=== PATIENT | male | born 1990 ===

== ENCOUNTER 2017-02-10 08:13 | Observation (INO) | payer MEDICAID ==
[2017-02-10] MEDS ORDERED: Midazolam 2 MG/2 ML VIAL ONE (08:19)
--- NOTE | 2017-02-10 08:34 | ED PDOC ---
HPI: Seizure Time Seen by Provider: 02/10/17 08:21 Chief Complaint (Nursing): Seizure Chief Complaint (Provider): Seizure History Per: EMS, Family History/Exam Limitations: clinical condition Recent Seizure Activity Began: Just Before Arrival Number Of Seizures: One Length Of Seizures (Duration): Minutes Quality Of Seizure: Generalized Precipitating Factor(s): None Associated Symptoms: Incontinence Of Urine Post-ictal Period: Yes Severity: Moderate Additional Complaint(s): Patient is a 26 year old male who presents to ED via EMS for seizure like activity this morning. As per EMS, upon their arrival patient was post-icle and transported to ED. As per mother, patient had a seizure this morning at 0730 while in bed, lasting 5 minutes. Notes a seizure in 2016 while in the hospital. EEG performed at that time, normal and no seizure medication started. Mother denies any known drug use other than Marijuana or alcohol consumption. Upon arrival to ED patient alert and oriented answering questions. Past Medical History Reviewed: Historical Data, Nursing Documentation, Vital Signs Vital Signs: Last Vital Signs Temp 98.1 F 02/10/17 08:20 Pulse 100 H 02/10/17 14:45 Resp 18 02/10/17 12:10 BP 138/76 02/10/17 12:10 Pulse Ox 98 02/10/17 14:45 - Medical History PMH: Mitral Valve Prolapse Denies: Chronic Kidney Disease - Surgical History Surgical History: No Surg Hx - Family History Family History: States: Unknown Family Hx - Living Arrangements Living Arrangements: With Family - Social History Current smoker - smoking cessation education provided: No Alcohol: None Drugs: Cannabis - Home Medications Home Medications: Ambulatory Orders Medication Instructions Recorded No Known Home Med 02/10/17 - Allergies Allergies/Adverse Reactions: Allergies Allergy/AdvReac Type Severity Reaction Status Date / Time No Known Allergies Allergy Verified 02/10/17 08:15 Review of Systems Review Of Systems: ROS cannot be obtained secondary to pt's inabilty to answer questions. Physical Exam - Reviewed Nursing Documentation Reviewed: Yes Vital Signs Reviewed: Yes - Physical Exam Appears: Positive for: In Acute Distress (Post-icle, somnulent) Head Exam: Positive for: ATRAUMATIC, NORMAL INSPECTION Skin: Positive for: Normal Color, Warm Eye Exam: Positive for: Normal appearance, EOMI, PERRL Cardiovascular/Chest: Positive for: Regular Rate, Rhythm, Tachycardia Respiratory: Positive for: Normal Breath Sounds. Negative for: Wheezing, Respiratory Distress Extremity: Positive for: Normal ROM. Negative for: Pedal Edema, Deformity Neurologic/Psych: Positive for: Other (Post-ictal). Negative for: Motor/ Sensory Deficits - Laboratory Results Result Diagrams: 02/10/17 08:45 02/10/17 08:45 - ECG ECG: Positive for: Interpreted By Me ECG Rhythm: Positive for: Sinus Tachycardia, 1st Degree Heart Block. Negative for: ST/T Changes Interpretation Of Abn EKG: (+) LVH with QRS widening Rate: 100 O2 Sat by Pulse Oximetry: 98 (NRB) Pulse Ox Interpretation: Normal Medical Decision Making Medical Decision Making: Time: 819 Initial impression: Seizure, recurrent with no trauma Initial plan: Upon arrival to ED patient experienced another seizure lasting 1-2 minutes. Placed on O2 via NRB, Versed IV ordered with resolution of seizure activity. Patient Post-ictle for approximately 10 minutes, now resolved. Previous charts reviewed: Evaluated in ED on 06/17/16 for right arm numbness and SOB. Patient during the ED visit had a tonic clonic seizure resolved with Ativan. As per mom, no seizure since this occurrence. -- EKG -- Alcohol serum -- BMP -- UDS -- Magnesium -- CBC -- Versed, Keppra 1400 Pt is alert awake and back to baseline. Pt is stable. No seizures. [address] Manuel. Recommends observation with MRI and EEG. Scribe Attestation: Documented by Mirtha Bazan acting as a scribe for Jordon Spencer MD MD Scribe Attestation: All medical record entries made by the Scribe were at my direction and personally dictated by me. I have reviewed the chart and agree that the record accurately reflects my personal performance of the history, physical exam, medical decision making, and the department course for this patient. I have also personally directed, reviewed, and agree with the discharge instructions and disposition. Disposition - Clinical Impression Clinical Impression: Recurrent seizures, Cannabinoid hyperemesis syndrome - Patient ED Disposition Is Patient to be Admitted: Yes Discussed With : Reyes Machuca Doctor Will See Patient In The: ED Counseled Patient/Family Regarding: Studies Performed, Diagnosis - Disposition Disposition Time: 14:20 Condition: FAIR - Pt Status Changed To: Hospital Disposition Of: Observation - POA Present On Arrival: None
[2017-02-10] MEDS ORDERED: levETIRAcetam 500 MG in Sodium Chloride 0.9% 100 ML IV STA (08:39)
[2017-02-10] MEDS ORDERED: Midazolam 2 MG/2 ML VIAL IV ONE (08:40)
[2017-02-10] MEDS ORDERED: levETIRAcetam 1,000 MG in Sodium Chloride 0.9% 100 ML IV STA (08:41)
[2017-02-10 09:01] LABS: BASO % 0.5 % (0.0-2.0); EOS # 0.2 K/uL (0.0-0.7); HEMATOCRIT 40.7 % (35.0-51.0); LYMPH # 1.7 K/uL (1.0-4.3); MEAN CELL VOLUME 87.9 fl (80.0-94.0); MEAN CORPUSCULAR HEMOGLOBIN 28.8 pg (27.0-31.0); MEAN CORPUSCULAR HGB CONC 32.8 g/dL (33.0-37.0); MEAN PLATELET VOLUME 8.9 fl (7.2-11.7); MONO # 0.5 K/uL (0.0-0.8); MONO % 6.1 % (0.0-10.0); NEUT # 5.3 K/uL (1.8-7.0); NEUT % 69.4 % (50.0-75.0); NRBC % 0.1 % (0.0-0.0); RED CELL DISTRIBUTION WIDTH 13.4 % (11.5-14.5); WHITE BLOOD COUNT 7.6 K/uL (4.8-10.8)
[2017-02-10 09:22] LABS: ALCOHOL SERUM < 10 mg/dl (0-10); BLOOD UREA NITROGEN 19 mg/dl (9-20); CALCIUM 9.9 mg/dL (8.4-10.2); CARBON DIOXIDE 22 mmol/L (22-30); CHLORIDE 102 mmol/L (98-107); GFR AFRICAN-AMERICAN > 60; GLUCOSE,RANDOM 127 mg/dL (75-110); POTASSIUM 4.5 MMOL/L (3.6-5.0); SODIUM 142 mmol/l (132-148)
[2017-02-10] MEDS ORDERED: Sodium Chloride 0.9% 1,000 ML IV STA (09:50)
--- NOTE | 2017-02-10 12:52 | CARD ---
APPROVED REPORT EKG Measurement Heart [id number] <Conclusion> Sinus rhythm with 1st degree AV block Left ventricular hypertrophy with QRS widening Abnormal ECG
[2017-02-10] MEDS ORDERED: Gadodiamide 287 MG/ML VIAL (15ML) IV ONE (15:45)
--- NOTE | 2017-02-10 15:46 | CP.PCM.HP ---
History of Present Illness - History of Present Illness History of Present Illness: Pt is a 26 year old male with no significant medical problems presented to ED via ambulance for seizure like activity; per EMS, upon their arrival patient was post-icle and transported to ED. His mother reports patient had a seizure this morning at 0730 while in bed, lasting 5 minutes. Notes a seizure in 2016 while in the hospital. EEG performed at that time, normal and no seizure medication started. Mother denies any known drug use other than Marijuana or alcohol consumption. Upon arrival to ED patient alert and oriented answering questions. Pt was seen and evaluated while getting ready for EEG, pt got nauseous; ED physician notified, zofran ordered. besides nausea and feeling tired, pt does not have any other complains Present on Admission - Present on Admission Any Indicators Present on Admission: No Review of Systems - Review of Systems All systems: reviewed and no additional remarkable complaints except Review of Systems: per HPI Past Patient History - Infectious Disease Hx of Infectious Diseases: None - Tetanus Immunizations Tetanus Immunization: Unknown - Past Medical History & Family History Past Medical History?: Yes - Past Social History Alcohol: None Drugs: Cannabis - CARDIAC Hx Mitral Valve Prolapse: Yes - PULMONARY Hx Respiratory Disorders: No - NEUROLOGICAL HX Cerebrovascular Accident: Yes ( ? " Stroke" - 6 most after VSD repair - had leg weakness , aphasia) Hx Seizures: Yes - HEENT Hx HEENT Problems: No - RENAL Hx Chronic Kidney Disease: No - ENDOCRINE/METABOLIC Hx Endocrine Disorders: No - HEMATOLOGICAL/ONCOLOGICAL Hx Blood Disorders: No - INTEGUMENTARY Hx Dermatological Problems: No - MUSCULOSKELETAL/RHEUMATOLOGICAL Hx Falls: No - GASTROINTESTINAL Hx Gastrointestinal Disorders: No - GENITOURINARY/GYNECOLOGICAL Hx Genitourinary Disorders: No - PSYCHIATRIC Hx Psychophysiologic Disorder: No Hx Substance Use: Yes - SURGICAL HISTORY Hx Surgeries: Yes Hx Herniorrhaphy: Yes Other/Comment: VSD repair. Hernia sx. - ANESTHESIA Hx Anesthesia: Yes Hx Anesthesia Reactions: No Hx Malignant Hyperthermia: No Meds Allergies/Adverse Reactions: Allergies Allergy/AdvReac Type Severity Reaction Status Date / Time No Known Allergies Allergy Verified 02/10/17 08:15 Physical Exam - Head Exam Head Exam: ATRAUMATIC, NORMAL INSPECTION, NORMOCEPHALIC - Eye Exam Eye Exam: Normal appearance, PERRL Pupil Exam: NORMAL ACCOMODATION - ENT Exam ENT Exam: Mucous Membranes Moist - Neck Exam Neck exam: Positive for: Full Rom. Negative for: Tenderness, Thyromegaly - Respiratory Exam Respiratory Exam: Clear to Auscultation Bilateral, NORMAL BREATHING PATTERN. absent: Rhonchi, Wheezes - Cardiovascular Exam Cardiovascular Exam: REGULAR RHYTHM, +S1, +S2 - GI/Abdominal Exam GI & Abdominal Exam: Normal Bowel Sounds, Soft. absent: Tenderness - Extremities Exam Extremities exam: Positive for: normal inspection. Negative for: calf tenderness, joint swelling, pedal edema - Back Exam Back exam: NORMAL INSPECTION. absent: CVA tenderness (L), CVA tenderness (R), paraspinal tenderness - Neurological Exam Neurological exam: Alert, CN II-XII Intact, Oriented x3, Reflexes Normal Results - Vital Signs Recent Vital Signs: Last Vital Signs Temp 98.1 F 02/10/17 08:20 Pulse 100 H 02/10/17 14:46 Resp 18 02/10/17 12:10 BP 138/76 02/10/17 12:10 Pulse Ox 98 02/10/17 14:46 - Labs Result Diagrams: 02/10/17 08:45 02/10/17 08:45 Assessment & Plan - Assessment and Plan (Free Text) Assessment: Pt is a26 y/o male with no significant medical problems except a one time seizure episode for which he was not placed on any medication, being admitted for seizure activity earlier today. Plan: Seizure activity neurology consulted- recommends MRI of brain and EEG, also to start on keppra f/u MRI F/u EEG zofran for nausea diet- regular dvt prophylaxis- SCds ( low risk)
--- NOTE | 2017-02-10 17:19 | MRI ---
PROCEDURE: MRI BRAIN WITH AND WITHOUT CONTRAST HISTORY: Seizures COMPARISON: Noncontrast head CT from 06/17/2016 TECHNIQUE: Multiplanar, multisequence MR images of the brain were obtained with and without intravenous contrast enhancement. Thin section coronal T2 and FLAIR sequences were obtained through the temporal lobes. 18 cc of Omniscan was injected intravenously. FINDINGS: HEMORRHAGE: None DWI: No evidence of an acute or early subacute infarction. BRAIN PARENCHYMA: Orr-white matter differentiation is preserved. There is no mass, mass effect or abnormal extra-axial fluid collection. There is age focal T1 hypointense, FLAIR hypointense and T2 hyperintense nonenhancing focus in the right paramedian thalamus which may represent a prominent perivascular space or gliosis. . The midline sagittal structures are normal. The hippocampi are symmetric and there is normal architecture in intrinsic signal intensity. There there is no evidence of mesial temporal sclerosis. ENHANCEMENT: No abnormal intracranial enhancement. VENTRICLES: The ventricles are normal in size, shape and configuration. CRANIUM: There is normal bone marrow signal pattern. ORBITS: Grossly unremarkable. PARANASAL SINUSES/MASTOIDS: Clear VASCULAR SYSTEM: Skull base flow voids intact. OTHER FINDINGS: None . IMPRESSION: No acute intracranial abnormality. No evidence of mesial temporal sclerosis, mass, hydrocephalus or any other significant abnormality.
[2017-02-11] MEDS ORDERED: Lidocaine 1% Inj (20ml) ONE (11:39)
--- NOTE | 2017-02-11 15:19 | CP.PCM.DIS ---
Provider - Provider Date of Admission: 02/10/17 14:24 Attending physician: Reyes Machuca MD Time Spent in preparation of Discharge (in minutes): 20 Diagnosis - Discharge Diagnosis (1) Recurrent seizures Status: Acute Hospital Course - Lab Results Lab Results: Most Recent Lab Values WBC 7.6 K/uL (4.8-10.8) 02/10/17 08:45 RBC 4.63 Mil/uL (4.40-5.90) 02/10/17 08:45 Hgb 13.4 g/dL (12.0-18.0) 02/10/17 08:45 Hct 40.7 % (35.0-51.0) 02/10/17 08:45 MCV 87.9 fl (80.0-94.0) 02/10/17 08:45 MCH 28.8 pg (27.0-31.0) 02/10/17 08:45 MCHC 32.8 g/dL (33.0-37.0) L 02/10/17 08:45 RDW 13.4 % (11.5-14.5) 02/10/17 08:45 Plt Count 182 K/uL (130-400) 02/10/17 08:45 MPV 8.9 fl (7.2-11.7) 02/10/17 08:45 Neut % (Auto) 69.4 % (50.0-75.0) 02/10/17 08:45 Lymph % (Auto) 22.0 % (20.0-40.0) 02/10/17 08:45 [place] % (Auto) 6.1 % (0.0-10.0) 02/10/17 08:45 Eos % (Auto) 2.0 % (0.0-4.0) 02/10/17 08:45 Baso % (Auto) 0.5 % (0.0-2.0) 02/10/17 08:45 Neut # 5.3 K/uL (1.8-7.0) 02/10/17 08:45 Lymph # 1.7 K/uL (1.0-4.3) 02/10/17 08:45 [place] # 0.5 K/uL (0.0-0.8) 02/10/17 08:45 Eos # 0.2 K/uL (0.0-0.7) 02/10/17 08:45 Baso # 0.0 K/uL (0.0-0.2) 02/10/17 08:45 Sodium 142 mmol/l (132-148) 02/10/17 08:45 Potassium 4.5 MMOL/L (3.6-5.0) 02/10/17 08:45 Chloride 102 mmol/L (98-107) 02/10/17 08:45 Carbon Dioxide 22 mmol/L (22-30) 02/10/17 08:45 Anion Gap 23 (10-20) H 02/10/17 08:45 BUN 19 mg/dl (9-20) 02/10/17 08:45 Creatinine 1.0 mg/dL (0.8-1.5) 02/10/17 08:45 Est GFR ( Amer) > 60 02/10/17 08:45 Est GFR (Non-Af Amer) > 60 02/10/17 08:45 POC Glucose (mg/dL) 152 mg/dL (65-110) H 02/10/17 08:36 Random Glucose 127 mg/dL (75-110) H 02/10/17 08:45 Calcium 9.9 mg/dL (8.4-10.2) 02/10/17 08:45 Magnesium 2.0 MG/DL (1.6-2.3) 02/10/17 08:45 Urine Opiates Screen Negative (NEGATIVE) 02/10/17 11:39 Urine Methadone Screen Negative (NEGATIVE) 02/10/17 11:39 Ur Barbiturates Screen Negative (NEGATIVE) 02/10/17 11:39 Ur Phencyclidine Scrn Negative (NEGATIVE) 02/10/17 11:39 Ur Amphetamines Screen Negative (NEGATIVE) 02/10/17 11:39 U Benzodiazepines Scrn Positive (NEGATIVE) H 02/10/17 11:39 U Oth Cocaine Metabols Negative (NEGATIVE) 02/10/17 11:39 U Cannabinoids Screen Positive (NEGATIVE) H 02/10/17 11:39 Alcohol, Quantitative < 10 mg/dl (0-10) 02/10/17 08:45 - Hospital Course Hospital Course: Pt wad admitted for recurrent seizure had an EEG and MRI done and cleared by neurology to go home on keppra with outpatient neurology follow up Discharge Exam - Head Exam Head Exam: ATRAUMATIC, NORMAL INSPECTION, NORMOCEPHALIC - Eye Exam Eye Exam: EOMI, Normal appearance, PERRL Pupil Exam: NORMAL ACCOMODATION - ENT Exam ENT Exam: Mucous Membranes Moist - Respiratory Exam Respiratory Exam: NORMAL BREATHING PATTERN - Cardiovascular Exam Cardiovascular Exam: REGULAR RHYTHM, +S1, +S2 - GI/Abdominal Exam GI & Abdominal Exam: Normal Bowel Sounds, Soft - Extremities Exam Extremities exam: normal inspection - Neurological Exam Neurological exam: Alert, CN II-XII Intact, Normal Gait, Oriented x3, Reflexes Normal - Psychiatric Exam Psychiatric exam: Normal Mood Discharge Plan - Discharge Medications Prescriptions: levETIRAcetam [Keppra] 500 mg PO BID@0900,2100 #60 tab - Follow Up Plan Condition: FAIR Disposition: HOME/ ROUTINE Instructions: Recurrent Seizures in Adults (GEN) Additional Instructions: please follow up with Dr. Bernal (neurologist) take medication as prescribed d/c ilicit drug use Referrals: Naga Bernal MD [Staff Provider] -
[2017-02-11 16:07] VITALS: BP 120/68; PULSE 80; RESP 20; TEMP 98.8; O2SAT 98
--- NOTE | 2017-02-11 20:44 | CP.PCM.CON ---
History of Present Illness - History of Present Illness History of Present Illness: Tony Camacho is a 26-year-old man with a previous history of a witnessed tonic -clonic seizure in the past, who presented again yesterday with an episode that was witnessed by his mother at home and then another seizure in the hospital. He was given 1 gram of Keppra and has been seizure free since. He admits to smoking marijuana daily, although recently he has cut down. Review of Systems - Review of Systems All systems: reviewed and no additional remarkable complaints except - Constitutional Constitutional: As Per HPI - EENT Eyes: As Per HPI - Cardiovascular Cardiovascular: As Per HPI - Neurological Neurological: As Per HPI - Psychiatric Psychiatric: As Per HPI Past Patient History - Infectious Disease Hx of Infectious Diseases: None - Tetanus Immunizations Tetanus Immunization: Unknown - Past Medical History & Family History Past Medical History?: Yes - Past Social History Smoking Status: Former Smoker - CARDIAC Hx Cardiac Disorders: Yes (VSD repair) - PULMONARY Hx Respiratory Disorders: No - NEUROLOGICAL Hx Neurological Disorder: Yes (seizures) - HEENT Hx HEENT Problems: No - RENAL Hx Chronic Kidney Disease: No - ENDOCRINE/METABOLIC Hx Endocrine Disorders: No - HEMATOLOGICAL/ONCOLOGICAL Hx Blood Disorders: No Hx AIDS: No Hx Human Immunodeficiency Virus (HIV): No - INTEGUMENTARY Hx Dermatological Problems: No - MUSCULOSKELETAL/RHEUMATOLOGICAL Hx Musculoskeletal Disorders: No Hx Falls: No - GASTROINTESTINAL Hx Gastrointestinal Disorders: No - GENITOURINARY/GYNECOLOGICAL Hx Genitourinary Disorders: No - PSYCHIATRIC Hx Psychophysiologic Disorder: No Hx Substance Use: No - SURGICAL HISTORY Hx Surgeries: Yes Hx Herniorrhaphy: Yes Other/Comment: VSD repair. Hernia sx. - ANESTHESIA Hx Anesthesia: Yes Hx Anesthesia Reactions: No Hx Malignant Hyperthermia: No Meds Home Medications: Home Medication List Medication Instructions Recorded Confirmed Type levETIRAcetam [Keppra] 500 mg PO BID@0900,2100 #60 tab 02/11/17 Rx Allergies/Adverse Reactions: Allergies Allergy/AdvReac Type Severity Reaction Status Date / Time No Known Allergies Allergy Verified 02/10/17 08:15 Physical Exam - Constitutional Appears: Well - Head Exam Head Exam: ATRAUMATIC, NORMAL INSPECTION, NORMOCEPHALIC - Eye Exam Eye Exam: EOMI, Normal appearance, PERRL Pupil Exam: NORMAL ACCOMODATION, PERRL - Neck Exam Neck exam: Positive for: Normal Inspection - Cardiovascular Exam Cardiovascular Exam: REGULAR RHYTHM - Neurological Exam Neurological exam: Alert, CN II-XII Intact, Normal Gait, Oriented x3, Reflexes Normal - Psychiatric Exam Psychiatric exam: Normal Affect, Normal Mood Results - Vital Signs Recent Vital Signs: Last Vital Signs Temp 98.8 F 02/11/17 16:06 Pulse 80 02/11/17 16:06 Resp 20 02/11/17 16:06 BP 120/68 02/11/17 16:06 Pulse Ox 98 02/11/17 16:06 - Labs Result Diagrams: 02/10/17 08:45 02/10/17 08:45 - Imaging and Cardiology MRI - head Status: Image reviewed by me, Report reviewed by me (Normal MRI of the brain.) Assessment & Plan (1) Seizure Status: Acute Priority: High Comment: Will start Keppra 500 mg BID, follow EEG results, and refer for outpatient neurology follow-up.
--- NOTE | 2017-02-24 14:27 | EEG ---
DATE: 02/10/2017 The record is obtained for a history of possible seizures. The record was obtained while patient was awake. The record was symmetrically equal on both sides with velocity of 8-9 cycles per second. Th e waves were fairly formed, fairly organized with a posterior distribution, moderate in amplitude, re active to eye opening by attenuation. There were abnormal discharges that were seen in the left temp oral area consisting of spikes that were seen very sporadically and rarely, were seen once or twice w ith slow waves, and the record did not show any changes with photic stimulation. The hyperventilatio n was omitted. There were no periods of drowsiness. There were no periods of sleep. There were eye movement artifacts, electrode artifacts, and muscle movement artifacts. SUMMARY: This is an abnormal record, significant for left temporal sporadic spikes and slow waves th at were seen occasionally. This might be consistent with a seizure disorder. A repeat of the study is recommended if warranted. Adriana Canada MD cc: [id number] TT: 02/24/2017 08:41:29 Confirmation # [id number] Dictation # [id number]
== END 2017-02-11 16:21 | disposition home or self-care (01) ==
LOC: H.ER 08:13 → H.ERHOLD 14:24 → H.TEL 17:55
PROVIDERS: ADMIT Family Medicine; ATTEND Family Medicine
DX: G40.909 Epilepsy, unspecified, not intractable, without status epilepticus (principal)

== ENCOUNTER 2017-03-14 06:36 | Emergency (ER) | payer MEDICAID ==
[2017-03-14 06:40] VITALS: TEMP 97.6
--- NOTE | 2017-03-14 07:14 | ED PDOC ---
HPI: Seizure Time Seen by Provider: 03/14/17 07:00 Chief Complaint (Nursing): Altered Mental Status History Per: Family (Presumptive seizure, mother came into room after episode, pt found on floor. No recollection of evevntr. Bit lower lip. H/o seizure disorder. noncompliant with meds due to feeling dysphoric when on meds.) Recent Seizure Activity Began: Unknown Number Of Seizures: One Length Of Seizures (Duration): Unknown Precipitating Factor(s): Missed Dose Of Anti-seizure Medication Associated Symptoms: Bit Tongue Post-ictal Period: Yes Past Medical History Vital Signs: Last Vital Signs Temp 97.6 F 03/14/17 06:38 Pulse 69 03/14/17 10:05 Resp 20 03/14/17 10:05 BP 121/73 03/14/17 10:05 Pulse Ox 100 03/14/17 10:05 - Medical History PMH: Mitral Valve Prolapse, Seizures Denies: HIV, Chronic Kidney Disease - Family History Family History: States: Unknown Family Hx - Home Medications Home Medications: Ambulatory Orders Medication Instructions Recorded levETIRAcetam [Keppra] 500 mg PO BID@0900,2100 #60 tab 02/11/17 - Allergies Allergies/Adverse Reactions: Allergies Allergy/AdvReac Type Severity Reaction Status Date / Time No Known Allergies Allergy Verified 02/10/17 08:15 Review of Systems ROS Statement: Except As Marked, All Systems Reviewed And Found Negative Neurological: Positive for: Seizures Physical Exam - Reviewed Nursing Documentation Reviewed: Yes Vital Signs Reviewed: Yes - Physical Exam Appears: Positive for: Non-toxic, No Acute Distress Head Exam: Positive for: ATRAUMATIC, NORMAL INSPECTION, NORMOCEPHALIC Skin: Positive for: Normal Color, Warm, DRY Eye Exam: Positive for: EOMI, Normal appearance, PERRL ENT: Positive for: Other (Bite jose left lateral tongue, abrasion lower lip). Negative for: Normal ENT Inspection Neck: Positive for: Normal, Painless ROM Cardiovascular/Chest: Positive for: Regular Rate, Rhythm Respiratory: Positive for: CNT, Normal Breath Sounds Gastrointestinal/Abdominal: Positive for: Normal Exam, Bowel Sounds, Soft Back: Positive for: Normal Inspection Extremity: Positive for: Normal ROM Neurologic/Psych: Positive for: Alert, Oriented. Negative for: Motor/Sensory Deficits - Laboratory Results Result Diagrams: 03/14/17 06:50 03/14/17 06:50 - ECG O2 Sat by Pulse Oximetry: 99 Disposition - Clinical Impression Clinical Impression: Seizure - Patient ED Disposition Is Patient to be Admitted: No Counseled Patient/Family Regarding: Studies Performed, Diagnosis, Need For Followup - Disposition Disposition: Routine/Home Disposition Time: 11:41 Condition: FAIR Instructions: Recurrent Seizures in Adults (ED)
[2017-03-14] MEDS ORDERED: carBAMazepine Chew Tab 100 MG Chew Tab PO ONE (07:30)
[2017-03-14 07:34] LABS: BASO % 0.6 % (0.0-2.0); EOS # 0.3 K/uL (0.0-0.7); EOS % 4.4 % (0.0-4.0); HEMATOCRIT 40.7 % (35.0-51.0); LYMPH # 1.8 K/uL (1.0-4.3); LYMPH % 30.2 % (20.0-40.0); MEAN CELL VOLUME 89.5 fl (80.0-94.0); MEAN CORPUSCULAR HEMOGLOBIN 28.6 pg (27.0-31.0); MEAN PLATELET VOLUME 8.9 fl (7.2-11.7); MONO # 0.4 K/uL (0.0-0.8); MONO % 6.6 % (0.0-10.0); NEUT # 3.5 K/uL (1.8-7.0); NEUT % 58.2 % (50.0-75.0); RED CELL DISTRIBUTION WIDTH 13.4 % (11.5-14.5); WHITE BLOOD COUNT 6.1 K/uL (4.8-10.8)
[2017-03-14 07:49] LABS: ALB/GLOB RATIO 1.6 (1.0-2.1); ALKALINE PHOSPHATASE 60 U/L (38-126); ALT/SGPT 33 U/L (21-72); AST/SGOT 34 U/L (17-59); BILIRUBIN,TOTAL 0.5 mg/dl (0.2-1.3); BLOOD UREA NITROGEN 17 mg/dl (9-20); CALCIUM 9.8 mg/dL (8.4-10.2); CARBON DIOXIDE 21 mmol/L (22-30); CHLORIDE 104 mmol/L (98-107); GFR AFRICAN-AMERICAN > 60; GLUCOSE,RANDOM 122 mg/dL (75-110); POTASSIUM 4.3 MMOL/L (3.6-5.0); SODIUM 140 mmol/l (132-148); TOTAL PROTEIN 7.6 G/DL (6.3-8.2)
[2017-03-14] MEDS ORDERED: carBAMazepine Chew Tab 100 MG Chew Tab ONE ×3 (08:08→14:28)
[2017-03-14] MEDS ORDERED: carBAMazepine Chew Tab 100 MG Chew Tab PO STA ×2 (08:09→09:05)
[2017-03-14 12:37] VITALS: BP 122/77; PULSE 56; RESP 18; O2SAT 98
== END 2017-03-14 11:50 | disposition home or self-care (01) ==
LOC: H.ER 06:36
DX: G40.909 Epilepsy, unspecified, not intractable, without status epilepticus (principal); Z91.14 Patient's other noncompliance with medication regimen; I34.1 Nonrheumatic mitral (valve) prolapse

== ENCOUNTER 2017-03-14 13:56 | Observation (INO) | payer MEDICAID ==
[2017-03-14] MEDS ORDERED: Sodium Chloride 0.9% 1,000 ML IV STA (14:18)
[2017-03-14] MEDS ORDERED: carBAMazepine Chew Tab 100 MG Chew Tab PO STA (14:31)
--- NOTE | 2017-03-14 14:31 | ED PDOC ---
HPI: Seizure Time Seen by Provider: 03/14/17 14:02 Chief Complaint (Nursing): Seizure Chief Complaint (Provider): Seizure History Per: Patient History/Exam Limitations: no limitations Recent Seizure Activity Began: Just Before Arrival Number Of Seizures: Multiple Quality Of Seizure: Generalized Additional Complaint(s): 14:02 Tony Camacho, 26 year old male presents to the ED on 03/14/17, for recurrent seizures. As per prior notes, the patient has been admitted to the ED earlier today for seizure disorder. During his first visit, the patient was seizure free for 5 hours in ED and was then discharged home with advice to follow up with his neurologist tomorrow. The patient is non compliant with medication and experienced another seizure after being discharged, witnessed by his family. PMD: Not provided Past Medical History Reviewed: Historical Data, Nursing Documentation, Vital Signs Vital Signs: Last Vital Signs Temp 98.4 F 03/15/17 13:00 Pulse 63 03/15/17 13:00 Resp 20 03/15/17 13:00 BP 118/68 03/15/17 13:00 Pulse Ox 97 03/15/17 13:00 - Medical History PMH: Mitral Valve Prolapse, Seizures Denies: HIV, Chronic Kidney Disease - Family History Family History: States: Unknown Family Hx - Home Medications Home Medications: Ambulatory Orders Medication Instructions Recorded carBAMazepine [TEGretol] 200 mg PO TID #90 tab 03/15/17 - Allergies Allergies/Adverse Reactions: Allergies Allergy/AdvReac Type Severity Reaction Status Date / Time No Known Allergies Allergy Verified 03/14/17 13:58 Review of Systems ROS Statement: Except As Marked, All Systems Reviewed And Found Negative Neurological: Positive for: Seizures Physical Exam - Reviewed Nursing Documentation Reviewed: Yes Vital Signs Reviewed: Yes - Physical Exam Appears: Positive for: Non-toxic, No Acute Distress Head Exam: Positive for: ATRAUMATIC, NORMOCEPHALIC Skin: Positive for: Normal Color, Warm, Dry Eye Exam: Positive for: Normal appearance, EOMI, PERRL ENT: Positive for: Normal ENT Inspection Neck: Positive for: Normal Cardiovascular/Chest: Positive for: Regular Rate, Rhythm, Chest Non Tender Respiratory: Positive for: Normal Breath Sounds. Negative for: Respiratory Distress Gastrointestinal/Abdominal: Positive for: Normal Exam. Negative for: Tenderness Extremity: Positive for: Normal ROM (moving all extremities equally). Negative for: Pedal Edema Neurologic/Psych: Positive for: Other (sleeping; generalized tonic clonic seizures with post-ictal period) - Laboratory Results Result Diagrams: 03/15/17 05:20 03/15/17 05:20 - ECG O2 Sat by Pulse Oximetry: 100 (RA) Pulse Ox Interpretation: Normal Medical Decision Making Medical Decision Makin:02 Initial Impression: Generalized tonic clonic seizures with post-ictal period Initial Plan: * CT Head w/o Contrast * carBAMazepine chew Tab 100 mg PO STAT * Sodium Chloride 0.9% IV 100 mls/hr * Ondansetron 4mg IVP * Physician Consult Routine 14:18 Admit to Hospital Routine 15:47 Patient actively seizing in ED at this time Plan * Ativan ordered, IV Scribe Attestation: Documented by Leigh Bonilla, training under Mirtha Bazan, acting as a scribe for Wilbur Hedrick MD. Provider Scribe Attestation: All medical record entries made by the Scribe were at my direction and personally dictated by me. I have reviewed the chart and agree that the record accurately reflects my personal performance of the history, physical exam, medical decision making, and the department course for this patient. I have also personally directed, reviewed, and agree with the discharge instructions and disposition. Disposition - Clinical Impression Clinical Impression: Frequent seizures - Patient ED Disposition Is Patient to be Admitted: Yes - Disposition Disposition Time: 13:00 Condition: GUARDED - Pt Status Changed To: Hospital Disposition Of: Inpatient - Admit Certification Admit to Inpatient:: After my assessment, the patient will require hospitalization for at least two midnights. This is because of the severity of symptoms shown, intensity of services needed, and/or the medical risk in this patient being treated as an outpatient. - POA Present On Arrival: None
--- NOTE | 2017-03-14 15:39 | CT ---
PROCEDURE: CT HEAD WITHOUT CONTRAST. HISTORY: r/o bleed COMPARISON: Comparison is made to the previous study dated 06/17/2016 TECHNIQUE: Axial computed tomography images were obtained through the head/brain without intravenous contrast. Radiation dose: Total exam DLP = 855.47 mGy-cm. This CT exam was performed using one or more of the following dose reduction techniques: Automated exposure control, adjustment of the mA and/or kV according to patient size, and/or use of iterative reconstruction technique. FINDINGS: HEMORRHAGE: No intracranial hemorrhage. BRAIN: No mass effect or edema. No atrophy or chronic microvascular ischemic changes. VENTRICLES: Unremarkable. No hydrocephalus. CALVARIUM: Unremarkable. PARANASAL SINUSES: Unremarkable as visualized. No significant inflammatory changes. MASTOID AIR CELLS: Unremarkable as visualized. No inflammatory changes. OTHER FINDINGS: None. IMPRESSION: No evidence of acute intracranial hemorrhage or acute pathology in the brain. No significant interval change since the previous exam.
[2017-03-14] MEDS ORDERED: levETIRAcetam 1,000 MG in Sodium Chloride 0.9% 100 ML IVPB ONE (16:23)
--- NOTE | 2017-03-14 21:40 | CON ---
DATE: 03/14/2017 REASON FOR CONSULTATION: Seizure. HISTORY OF PRESENT ILLNESS: The patient is a 26-year-old male who was brought to the hospital after he had a seizure while he was asleep. The patient apparently has a history of seizures starting in 06/2016. At that time, he was not started on any medication. Subsequently, he had 2 seizures in [place] at which time he was started on Keppra. On Keppra he started having some behavioral side effects s o was switched to carbamazepine. However, patient was not taking carbamazepine regularly. He is sup posed to have an appointment with his neurologist tomorrow. The patient was discharged after being s een in the Emergency Room this morning; however, he was brought in because he had another seizure and while in the Emergency Room he had a third seizure. That is why the patient was admitted in the [facility]. The patient was loaded with IV Keppra. On review of the moment, the patient is sleepy, but i s easily arousable and follows all commands. REVIEW OF SYSTEMS: Positive for headache. Denies any chest pain, shortness of breath, abdominal petros n, constipation, diarrhea, dysuria, pyuria, cough, sputum production. PAST MEDICAL HISTORY: Includes mitral valve prolapse, seizures. MEDICATIONS: At home included carbamazepine 200 mg daily and 400 mg at bedtime; however, patient was apparently not taking the medications. ALLERGIES: No known drug allergies. SOCIAL HISTORY: The patient occasionally smokes marijuana. He denies the use of alcohol or illicit drugs. FAMILY HISTORY: Noncontributory to the case. PHYSICAL EXAMINATION: GENERAL: The patient is a young, pleasant male lying on the bed, in no acute distress. VITAL SIGNS: His blood pressure is 102/67, heart rate is 69 per minute, breathing at a rate of 16 pe r minute, temperature is 98.4 degrees Fahrenheit. HEENT: Normocephalic, atraumatic. NECK: Supple. There are no carotid bruits. LUNGS: Clear. CARDIOVASCULAR: S1, S2 audible. No murmurs. ABDOMEN: Soft, nontender, bowel sounds present. NEUROLOGIC EXAMINATION: MENTAL STATUS: The patient is awake, alert, oriented to time, place, person. Speech is fluent. Nam ing and repetition normal. Memory and cognition are intact. CRANIAL NERVES: Pupils are 4 mm bilaterally reactive to light. Visual romero are full. Extraocular movements are intact. There is no facial asymmetry. Palate is upgoing bilaterally and tongue is mi dline. MOTOR: Tone is normal. Power is 5/5 bilaterally in all extremities. Reflexes +2 and symmetrical. Plantars downgoing bilaterally. CEREBELLAR: [id number] shows no dysmetria. Gait is deferred at the moment. LABORATORY DATA: Reviewed, shows a WBC of 6.1, hemoglobin 13.0, hematocrit 40.7 and platelets of 158 . His sodium is 140, potassium is 4.3, chloride 104, carbon dioxide 21, BUN of 17, creatinine 1.1, a nd glucose of 122. His urine toxicology is positive for cannabinoids. His Tegretol level was less t raphael 0.3. IMPRESSION: Breakthrough seizure with a history of seizure disorder secondary to noncompliance. RECOMMENDATIONS: 1. The patient to be restarted on carbamazepine. He was given 300 mg of carbamazepine this morning; however, will give 300 extra tonight and start him on 200 mg 3 times a day as of tomorrow morning. 2. The patient's Keppra is to be discontinued as the patient apparently had behavioral side effects with Keppra when he was started on it last month. 3. The patient had a CT scan of the head done which is negative. As per mother, patient had MRI of the brain done and it was normal. 4. If patient remains stable and has no further seizures, then he may be discharged tomorrow with ou tpatient followup with his primary neurologist. Thank you for the opportunity to participate in the care of this patient. Antonieta Estevez MD cc: [id number] TT: 03/14/2017 21:39:52 Confirmation # [id number] Dictation # [id number]
[2017-03-15 06:39] LABS: BASO % 0.2 % (0.0-2.0); EOS # 0.1 K/uL (0.0-0.7); EOS % 0.4 % (0.0-4.0); HEMATOCRIT 35.3 % (35.0-51.0); LYMPH # 1.4 K/uL (1.0-4.3); MEAN CELL VOLUME 87.9 fl (80.0-94.0); MEAN CORPUSCULAR HEMOGLOBIN 28.6 pg (27.0-31.0); MEAN CORPUSCULAR HGB CONC 32.6 g/dL (33.0-37.0); MEAN PLATELET VOLUME 9.1 fl (7.2-11.7); MONO # 1.1 K/uL (0.0-0.8); MONO % 8.5 % (0.0-10.0); NEUT # 10.4 K/uL (1.8-7.0); NEUT % 79.9 % (50.0-75.0)
[2017-03-15 06:48] LABS: ALB/GLOB RATIO 1.5 (1.0-2.1); ALCOHOL SERUM < 10 mg/dl (0-10); ALKALINE PHOSPHATASE 59 U/L (38-126); ALT/SGPT 31 U/L (21-72); AST/SGOT 28 U/L (17-59); BILIRUBIN,TOTAL 0.8 mg/dl (0.2-1.3); BLOOD UREA NITROGEN 12 mg/dl (9-20); CALCIUM 9.4 mg/dL (8.4-10.2); CARBON DIOXIDE 26 mmol/L (22-30); CHLORIDE 105 mmol/L (98-107); GFR AFRICAN-AMERICAN > 60; GLUCOSE,RANDOM 77 mg/dL (75-110); POTASSIUM 4.1 MMOL/L (3.6-5.0); SODIUM 141 mmol/l (132-148); TOTAL PROTEIN 6.6 G/DL (6.3-8.2)
[2017-03-15 08:07] VITALS: RESP 20
[2017-03-15] MEDS ORDERED: carBAMazepine Chew Tab 100 MG Chew Tab PO SCH (09:00)
[2017-03-15] MEDS ORDERED: Enoxaparin 40 mg Syringe SC SCH (09:00)
[2017-03-15] MEDS ORDERED: Alum-Mag Hydrox-Simethicone Susp (30 mL) PO ONE (10:30)
[2017-03-15 12:32] VITALS: BP 118/68; PULSE 63
[2017-03-15 15:18] VITALS: TEMP 98.4
--- NOTE | 2017-03-15 22:39 | CP.PCM.HP ---
History of Present Illness - History of Present Illness History of Present Illness: A 26 yr old male with x of recent diagnosis of seizure ,supposed to f\u neurology, not complaint to meds as per mother who is at bed side he supposed to be on diff med too the patient has been admitted to the ED earlier today for seizure disorder. During his first visit, the patient was seizure free for 5 hours in ED and was then discharged home with advice to follow up with his neurologist tomorrow. The patient is non compliant with medication and experienced another seizure after being discharged, witnessed by his family. Present on Admission - Present on Admission Any Indicators Present on Admission: No Review of Systems - Constitutional Constitutional: Malaise. absent: Fatigue, Fever - EENT Eyes: absent: Other Visual Disturbances Nose/Mouth/Throat: absent: Post Nasal Drip, Sore Throat - Cardiovascular Cardiovascular: absent: Chest Pain, Dyspnea, Paroxysmal Nocturnal Dyspnea, Rapid Heart Rate - Respiratory Respiratory: absent: Cough, Wheezing, Chest Congestion - Gastrointestinal Gastrointestinal: absent: Constipation, Dyspepsia, Nausea, Vomiting - Genitourinary Genitourinary: absent: Urinary Frequency - Musculoskeletal Musculoskeletal: absent: Abnormal Gait, Myalgias - Integumentary Integumentary: absent: Lesions, Sores - Neurological Neurological: absent: Frequent Falls, Syncope - Endocrine Endocrine: Fatigue - Hematologic/Lymphatic Hematologic: absent: Lymphadenopathy Past Patient History - Infectious Disease Hx of Infectious Diseases: None - Tetanus Immunizations Tetanus Immunization: Unknown - Past Medical History & Family History Past Medical History?: Yes - Past Social History Smoking Status: Current Some Days Smoker - CARDIAC Hx Mitral Valve Prolapse: Yes - PULMONARY Hx Respiratory Disorders: No - NEUROLOGICAL Hx Seizures: Yes - HEENT Hx HEENT Problems: No - RENAL Hx Chronic Kidney Disease: No - ENDOCRINE/METABOLIC Hx Endocrine Disorders: No - HEMATOLOGICAL/ONCOLOGICAL Hx Human Immunodeficiency Virus (HIV): No - INTEGUMENTARY Hx Dermatological Problems: No - MUSCULOSKELETAL/RHEUMATOLOGICAL Hx Musculoskeletal Disorders: No Hx Falls: Yes - GASTROINTESTINAL Hx Gastrointestinal Disorders: No - GENITOURINARY/GYNECOLOGICAL Hx Genitourinary Disorders: No - PSYCHIATRIC Hx Psychophysiologic Disorder: No Hx Substance Use: Yes (marijuana) - SURGICAL HISTORY Hx Surgeries: Yes Hx Herniorrhaphy: Yes Other/Comment: VSD repair. Hernia sx. - ANESTHESIA Hx Anesthesia: Yes Hx Anesthesia Reactions: No Hx Malignant Hyperthermia: No Meds Home Medications: Home Medication List Medication Instructions Recorded Confirmed Type carBAMazepine [TEGretol] 200 mg PO TID #90 tab 03/15/17 Rx Allergies/Adverse Reactions: Allergies Allergy/AdvReac Type Severity Reaction Status Date / Time No Known Allergies Allergy Verified 03/14/17 13:58 Results - Vital Signs Recent Vital Signs: Last Vital Signs Temp 98.4 F 03/15/17 13:00 Pulse 63 03/15/17 13:00 Resp 20 03/15/17 13:00 BP 118/68 03/15/17 13:00 Pulse Ox 97 03/15/17 13:00 - Labs Result Diagrams: 03/15/17 05:20 03/15/17 05:20 Labs: Laboratory Results - last 24 hr 03/14/17 03/15/17 03/15/17 15:55 05:20 05:20 WBC 13.0 H D RBC 4.01 L Hgb 11.5 L Hct 35.3 MCV 87.9 MCH 28.6 MCHC 32.6 L RDW 13.0 Plt Count 141 MPV 9.1 Neut % (Auto) 79.9 H Lymph % (Auto) 11.0 L [place] % (Auto) 8.5 Eos % (Auto) 0.4 Baso % (Auto) 0.2 Neut # 10.4 H Lymph # 1.4 [place] # 1.1 H Eos # 0.1 Baso # 0.0 Sodium 141 Potassium 4.1 Chloride 105 Carbon Dioxide 26 Anion Gap 14 BUN 12 Creatinine 1.0 Est GFR ( Amer) > 60 Est GFR (Non-Af Amer) > 60 POC Glucose (mg/dL) 98 Random Glucose 77 Calcium 9.4 Total Bilirubin 0.8 Direct Bilirubin 0.3 AST 28 ALT 31 Alkaline Phosphatase 59 Total Protein 6.6 Albumin 3.9 Globulin 2.7 Albumin/Globulin Ratio 1.5 Alcohol, Quantitative < 10 - Imaging and Cardiology CT scan - head Status: Report reviewed by me Assessment & Plan (1) Recurrent seizures Status: Acute Comment: discussed with pateint in detail about meds complaince. neurology cleared to be dischaarged today if seizure free in 24 hrs. d\c home. meds as per neurology Decision To Admit - Pt Status Changed To: Hospital Disposition Of: Inpatient - Admit Certification Admit to Inpatient:: After my assessment, the patient will require hospitalization for at least two midnights. This is because of the severity of symptoms shown, intensity of services needed, and/or the medical risk in this patient being treated as an outpatient. - . Bed Request Type: Telemetry Admitting Physician: Edgard Garcia
[2017-03-18 09:17] VITALS: O2SAT 100
--- NOTE | 2017-04-13 21:47 | CP.PCM.DIS ---
Provider - Provider Date of Admission: 03/14/17 14:18 Attending physician: Edgard Garcia MD Time Spent in preparation of Discharge (in minutes): 15 Diagnosis - Discharge Diagnosis (1) Recurrent seizures Status: Acute Hospital Course - Lab Results Lab Results: Most Recent Lab Values WBC 13.0 K/uL (4.8-10.8) H D 03/15/17 05:20 RBC 4.01 Mil/uL (4.40-5.90) L 03/15/17 05:20 Hgb 11.5 g/dL (12.0-18.0) L 03/15/17 05:20 Hct 35.3 % (35.0-51.0) 03/15/17 05:20 MCV 87.9 fl (80.0-94.0) 03/15/17 05:20 MCH 28.6 pg (27.0-31.0) 03/15/17 05:20 MCHC 32.6 g/dL (33.0-37.0) L 03/15/17 05:20 RDW 13.0 % (11.5-14.5) 03/15/17 05:20 Plt Count 141 K/uL (130-400) 03/15/17 05:20 MPV 9.1 fl (7.2-11.7) 03/15/17 05:20 Neut % (Auto) 79.9 % (50.0-75.0) H 03/15/17 05:20 Lymph % (Auto) 11.0 % (20.0-40.0) L 03/15/17 05:20 [place] % (Auto) 8.5 % (0.0-10.0) 03/15/17 05:20 Eos % (Auto) 0.4 % (0.0-4.0) 03/15/17 05:20 Baso % (Auto) 0.2 % (0.0-2.0) 03/15/17 05:20 Neut # 10.4 K/uL (1.8-7.0) H 03/15/17 05:20 Lymph # 1.4 K/uL (1.0-4.3) 03/15/17 05:20 [place] # 1.1 K/uL (0.0-0.8) H 03/15/17 05:20 Eos # 0.1 K/uL (0.0-0.7) 03/15/17 05:20 Baso # 0.0 K/uL (0.0-0.2) 03/15/17 05:20 Sodium 141 mmol/l (132-148) 03/15/17 05:20 Potassium 4.1 MMOL/L (3.6-5.0) 03/15/17 05:20 Chloride 105 mmol/L (98-107) 03/15/17 05:20 Carbon Dioxide 26 mmol/L (22-30) 03/15/17 05:20 Anion Gap 14 (10-20) 03/15/17 05:20 BUN 12 mg/dl (9-20) 03/15/17 05:20 Creatinine 1.0 mg/dL (0.8-1.5) 03/15/17 05:20 Est GFR ( Amer) > 60 03/15/17 05:20 Est GFR (Non-Af Amer) > 60 03/15/17 05:20 POC Glucose (mg/dL) 98 mg/dL (65-110) 03/14/17 15:55 Random Glucose 77 mg/dL (75-110) 03/15/17 05:20 Calcium 9.4 mg/dL (8.4-10.2) 03/15/17 05:20 Total Bilirubin 0.8 mg/dl (0.2-1.3) 03/15/17 05:20 Direct Bilirubin 0.3 mg/ml (0.0-0.4) 03/15/17 05:20 AST 28 U/L (17-59) 03/15/17 05:20 ALT 31 U/L (21-72) 03/15/17 05:20 Alkaline Phosphatase 59 U/L (38-126) 03/15/17 05:20 Total Protein 6.6 G/DL (6.3-8.2) 03/15/17 05:20 Albumin 3.9 g/dL (3.5-5.0) 03/15/17 05:20 Globulin 2.7 gm/dL (2.2-3.9) 03/15/17 05:20 Albumin/Globulin Ratio 1.5 (1.0-2.1) 03/15/17 05:20 Urine Opiates Screen Negative (NEGATIVE) 03/14/17 11:31 Urine Methadone Screen Negative (NEGATIVE) 03/14/17 11:31 Ur Barbiturates Screen Negative (NEGATIVE) 03/14/17 11:31 Ur Phencyclidine Scrn Negative (NEGATIVE) 03/14/17 11:31 Ur Amphetamines Screen Negative (NEGATIVE) 03/14/17 11:31 U Benzodiazepines Scrn Negative (NEGATIVE) 03/14/17 11:31 U Oth Cocaine Metabols Negative (NEGATIVE) 03/14/17 11:31 U Cannabinoids Screen Positive (NEGATIVE) H 03/14/17 11:31 Alcohol, Quantitative < 10 mg/dl (0-10) 03/15/17 05:20 - Hospital Course Hospital Course: as per HPI Discharge Exam - Head Exam Head Exam: ATRAUMATIC, NORMOCEPHALIC Discharge Plan - Discharge Medications Prescriptions: carBAMazepine [TEGretol] 200 mg PO TID #90 tab - Follow Up Plan Condition: GUARDED Disposition: HOME/ ROUTINE Instructions: New-Onset Seizure in Adults (DC) Additional Instructions: Follow-up w/ Primary Neurologist Dr. Oneyda Hutchins in one week to call for appt.No driving, no strenous activities. Regular diet.
== END 2017-03-15 14:30 | disposition home or self-care (01) ==
LOC: H.ER 13:56 → H.ERHOLD 14:18 → H.TEL 18:11
PROVIDERS: ADMIT Internal Medicine; ATTEND Internal Medicine
DX: G40.409 Other generalized epilepsy and epileptic syndromes, not intractable, without status epilepticus (principal); F12.90 Cannabis use, unspecified, uncomplicated; I34.1 Nonrheumatic mitral (valve) prolapse; F17.200 Nicotine dependence, unspecified, uncomplicated; Z91.14 Patient's other noncompliance with medication regimen; Z79.899 Other long term (current) drug therapy

== ENCOUNTER 2017-07-20 15:42 | Emergency (ER) | payer MEDICAID ==
[2017-07-20 15:46] VITALS: BP 140/79; PULSE 91; RESP 16; TEMP 98.1; O2SAT 100
[2017-07-20] MEDS ORDERED: Sodium Chloride 0.9% 1,000 ML IV STA (16:05)
[2017-07-20 16:39] LABS: BASO % 0.6 % (0.0-2.0); EOS # 0.3 K/uL (0.0-0.7); EOS % 4.6 % (0.0-4.0); LYMPH # 1.4 K/uL (1.0-4.3); LYMPH % 22.5 % (20.0-40.0); MEAN CELL VOLUME 87.8 fl (80.0-94.0); MEAN CORPUSCULAR HEMOGLOBIN 28.8 pg (27.0-31.0); MEAN CORPUSCULAR HGB CONC 32.8 g/dL (33.0-37.0); MEAN PLATELET VOLUME 8.6 fl (7.2-11.7); MONO # 0.5 K/uL (0.0-0.8); MONO % 8.2 % (0.0-10.0); NEUT # 4.1 K/uL (1.8-7.0); NEUT % 64.1 % (50.0-75.0); NRBC % 0.1 % (0.0-0.0); RED CELL DISTRIBUTION WIDTH 13.2 % (11.5-14.5); WHITE BLOOD COUNT 6.4 K/uL (4.8-10.8)
--- NOTE | 2017-07-20 16:47 | ED PDOC ---
HPI: Seizure Time Seen by Provider: 07/20/17 15:46 Chief Complaint (Nursing): Seizure Chief Complaint (Provider): Seizure History Per: Patient History/Exam Limitations: no limitations Recent Seizure Activity Began: Just Before Arrival Number Of Seizures: One Length Of Seizures (Duration): Minutes (x2) Associated Symptoms: Bit Tongue Additional Complaint(s): Tony Camacho is a 26 year old male with previous medical history of seizures, who presents to the emergency department for an evaluation status post seizure episode lasting 2 minutes associated with tongue biting witnessed by parents prior to arrival. Patient arrives to ED at baseline mental status with no medical complaints. Denied incontinence, headaches, paresthesia or weakness. Patient also reported he has been non-compliant with Tegretol medication and had last seizure 1 month ago. PMD: none provided Past Medical History Reviewed: Historical Data, Nursing Documentation, Vital Signs Vital Signs: Last Vital Signs Temp 98.1 F 07/20/17 15:43 Pulse 91 H 07/20/17 15:43 Resp 16 07/20/17 15:43 BP 140/79 07/20/17 15:43 Pulse Ox 100 07/20/17 17:45 - Medical History PMH: Mitral Valve Prolapse, Seizures Denies: HIV, Chronic Kidney Disease - Family History Family History: States: Unknown Family Hx - Social History Current smoker - smoking cessation education provided: Yes Alcohol: None Drugs: Cannabis - Home Medications Home Medications: Ambulatory Orders Medication Instructions Recorded carBAMazepine [TEGretol] 200 mg PO TID #90 tab 03/15/17 - Allergies Allergies/Adverse Reactions: Allergies Allergy/AdvReac Type Severity Reaction Status Date / Time No Known Allergies Allergy Verified 07/20/17 15:43 Review of Systems ROS Statement: Except As Marked, All Systems Reviewed And Found Negative Genitourinary Male: Negative for: Incontinence Neurological: Positive for: Seizures (bit tongue). Negative for: Weakness (or paresthesia), Headache Physical Exam - Reviewed Nursing Documentation Reviewed: Yes Vital Signs Reviewed: Yes - Physical Exam Appears: Positive for: Well, Non-toxic, No Acute Distress Head Exam: Positive for: ATRAUMATIC, NORMOCEPHALIC Skin: Positive for: Normal Color (with right eyebrow hematoma) ENT: Positive for: Other (superficial abrasion of right-sided tongue) Cardiovascular/Chest: Positive for: Regular Rate, Rhythm. Negative for: Chest Non Tender Respiratory: Positive for: Normal Breath Sounds. Negative for: Respiratory Distress Neurologic/Psych: Positive for: Alert (x3), call center assistant II-XII (intact), Oriented. Negative for: Motor/Sensory Deficits - Laboratory Results Result Diagrams: 07/20/17 16:30 07/20/17 16:30 - ECG O2 Sat by Pulse Oximetry: 100 (RA) Pulse Ox Interpretation: Normal - Physician Consult Information Time Consulting Physican Contacted: 16:45 Physician Contacted: Naga Bernal Outcome Of Conversation: Recommends loading with Keppra 1 g and to continue Tegretol, check Na level, can be discharged if seizure-free, follow-up with him or Dr. Lane. Medical Decision Making Medical Decision Making: Initial Impression: Seizure Initial Plan: * Urine dipstick * Keppra 1,000mg PO * NS 1,000ml IV per 1,000mls/hr * Accucheck Time: 1712 --CT head FINDINGS: HEMORRHAGE: No intracranial hemorrhage. BRAIN: Orr-white matter differentiation is preserved. There is no mass, mass effect or abnormal extra-axial fluid collection. There is no territorial infarction. VENTRICLES: The ventricles are normal in size, shape and configuration. CALVARIUM: There is no calvarial fracture or extracranial soft tissue swelling. There is moderate right periorbital soft tissue swelling. PARANASAL SINUSES: Predominantly clear. MASTOID AIR CELLS: Predominantly clear. OTHER FINDINGS: None. IMPRESSION: No acute intracranial abnormality. Time: 1720 --CT orbits FINDINGS: RIGHT ORBIT: RIGHT BONY ORBIT: Normal. RIGHT INTRAORBITAL STRUCTURES: Globe: Normal. Extraocular muscles: Normal. Post septal space: Normal. Optic Nerve: Normal. Lacrimal Apparatus: Normal. RIGHT PRESEPTAL SOFT TISSUES: There is moderate lateral periorbital soft tissue swelling. LEFT ORBIT: LEFT BONY ORBIT: Normal. LEFT INTRAORBITAL STRUCTURES: Globe: Normal. Extraocular muscles: Normal. Post septal space: Normal Optic Nerve: Normal. . Lacrimal Apparatus: Normal. LEFT PRESEPTAL SOFT TISSUES: Normal. OTHER: There is mild polypoid mucosal thickening in the maxillary sinuses. IMPRESSION: No acute nasal bone, orbital or maxillofacial fracture. Moderate right lateral periorbital soft tissue swelling. Scribe Attestation: Documented by Shantel Ludwig, acting as a scribe for Linda Hernandez MD. Provider Scribe Attestation: All medical record entries made by the Scribe were at my direction and personally dictated by me. I have reviewed the chart and agree that the record accurately reflects my personal performance of the history, physical exam, medical decision making, and the department course for this patient. I have also personally directed, reviewed, and agree with the discharge instructions and disposition. Disposition - Clinical Impression Clinical Impression: Recurrent seizures - Disposition Referrals: Naga Bernal MD [Staff Provider] - Disposition: Routine/Home Disposition Time: 18:54 Condition: IMPROVED Additional Instructions: CONTINUE TEGRETOL PRESCRIBED. Instructions: Recurrent Seizures in Adults (ED) Forms: [email or web address] (Sudanese)
[2017-07-20 16:54] LABS: ALB/GLOB RATIO 1.7 (1.0-2.1); ALKALINE PHOSPHATASE 70 U/L (38-126); ALT/SGPT 52 U/L (21-72); AST/SGOT 36 U/L (17-59); BILIRUBIN,TOTAL 0.5 mg/dl (0.2-1.3); BLOOD UREA NITROGEN 19 mg/dl (9-20); CALCIUM 9.5 mg/dL (8.4-10.2); CARBON DIOXIDE 27 mmol/L (22-30); CHLORIDE 101 mmol/L (98-107); GFR AFRICAN-AMERICAN > 60; GLUCOSE,RANDOM 74 mg/dL (75-110); POTASSIUM 4.7 MMOL/L (3.6-5.0); SODIUM 138 mmol/l (132-148); TOTAL PROTEIN 7.2 G/DL (6.3-8.2)
[2017-07-20 16:54] LABS: RBC URINE 1 /hpf (0-3); URINE BACTERIA RARE (<OCC); URINE BILIRUBIN NEGATIVE (NEGATIVE); URINE BLOOD NEGATIVE (NEGATIVE); URINE COLOR YELLOW (YELLOW); URINE GLUCOSE (UA) NEG (Normal); URINE KETONE NEGATIVE (NEGATIVE); URINE LEUKOCYTE ESTERASE NEG Leu/uL (Negative); URINE PROTEIN 100 mg/dL (NEGATIVE); URINE UROBILINOGEN 0.2-1.0 mg/dL (0.2-1.0); WBC URINE 1 /hpf (0-5)
--- NOTE | 2017-07-20 17:15 | CT ---
PROCEDURE: CT HEAD WITHOUT CONTRAST. HISTORY: Head injury COMPARISON: None available. TECHNIQUE: Axial computed tomography images were obtained through the head/brain without intravenous contrast. Radiation dose: Total exam DLP = 882.89 mGy-cm. This CT exam was performed using one or more of the following dose reduction techniques: Automated exposure control, adjustment of the mA and/or kV according to patient size, and/or use of iterative reconstruction technique. FINDINGS: HEMORRHAGE: No intracranial hemorrhage. BRAIN: Orr-white matter differentiation is preserved. There is no mass, mass effect or abnormal extra-axial fluid collection. There is no territorial infarction. VENTRICLES: The ventricles are normal in size, shape and configuration. CALVARIUM: There is no calvarial fracture or extracranial soft tissue swelling. There is moderate right periorbital soft tissue swelling. PARANASAL SINUSES: Predominantly clear. MASTOID AIR CELLS: Predominantly clear. OTHER FINDINGS: None. IMPRESSION: No acute intracranial abnormality.
--- NOTE | 2017-07-20 17:22 | CT ---
PROCEDURE: CT ORBITS WITHOUT CONTRAST. HISTORY: R orbit injury COMPARISON: None available. TECHNIQUE: Axial CT images of the orbits were obtained. Coronal and sagittal reformats were generated. Radiation dose: Total exam DLP = 884.00 mGy-cm. This CT exam was performed using one or more of the following dose reduction techniques: Automated exposure control, adjustment of the mA and/or kV according to patient size, and/or use of iterative reconstruction technique. FINDINGS: RIGHT ORBIT: RIGHT BONY ORBIT: Normal. RIGHT INTRAORBITAL STRUCTURES: Globe: Normal. Extraocular muscles: Normal. Post septal space: Normal. Optic Nerve: Normal. Lacrimal Apparatus: Normal. RIGHT PRESEPTAL SOFT TISSUES: There is moderate lateral periorbital soft tissue swelling. LEFT ORBIT: LEFT BONY ORBIT: Normal. LEFT INTRAORBITAL STRUCTURES: Globe: Normal. Extraocular muscles: Normal. Post septal space: Normal Optic Nerve: Normal. . Lacrimal Apparatus: Normal. LEFT PRESEPTAL SOFT TISSUES: Normal. OTHER: There is mild polypoid mucosal thickening in the maxillary sinuses. IMPRESSION: No acute nasal bone, orbital or maxillofacial fracture. Moderate right lateral periorbital soft tissue swelling.
== END 2017-07-20 19:08 | disposition home or self-care (01) ==
LOC: H.ER 15:42
DX: G40.909 Epilepsy, unspecified, not intractable, without status epilepticus (principal); I34.1 Nonrheumatic mitral (valve) prolapse
CPT/HCPCS: 70450; 70480; 80053; 80156; 80324; 80345; 80346; 80349; 80353; 80358; 80361; 81003; 83992; 85025; 96360; 99285; J7040

== ENCOUNTER 2018-09-10 08:34 | Emergency (ER) | payer MEDICAID ==
[2018-09-10 08:37] VITALS: BMI 14.3
[2018-09-10 09:29] LABS: BASO % 0.6 % (0.0-2.0); EOS # 0.1 K/uL (0.0-0.7); EOS % 2.9 % (0.0-4.0); HEMOGLOBIN 12.2 g/dL (12.0-18.0); LYMPH # 1.1 K/uL (1.0-4.3); LYMPH % 22.8 % (20.0-40.0); MEAN CELL VOLUME 89.2 fl (80.0-94.0); MEAN CORPUSCULAR HGB CONC 32.5 g/dL (33.0-37.0); MEAN PLATELET VOLUME 8.5 fl (7.2-11.7); MONO # 0.4 K/uL (0.0-0.8); MONO % 7.6 % (0.0-10.0); NEUT # 3.1 K/uL (1.8-7.0); NEUT % 66.1 % (50.0-75.0); RBC 4.2 Mil/uL (4.40-5.90); RED CELL DISTRIBUTION WIDTH 12.7 % (11.5-14.5); WHITE BLOOD COUNT 4.7 K/uL (4.8-10.8)
[2018-09-10 09:35] VITALS: O2SAT 99
[2018-09-10 09:35] LABS: ALB/GLOB RATIO 1.5 (1.0-2.1); ALBUMIN 4.1 g/dL (3.5-5.0); ALT/SGPT 28 U/L (21-72); AST/SGOT 24 U/L (17-59); BLOOD UREA NITROGEN 16 mg/dl (9-20); CALCIUM 9.2 mg/dL (8.4-10.2); GFR NON-AFRICAN AMERICAN > 60
--- NOTE | 2018-09-10 10:52 | ED PDOC ---
HPI: Seizure Time Seen by Provider: 09/10/18 08:51 Chief Complaint (Nursing): Seizure Chief Complaint (Provider): Seizure History Per: Patient History/Exam Limitations: no limitations Recent Seizure Activity Began: Just Before Arrival Number Of Seizures: One Associated Symptoms: denies: Bit Tongue, Incontinence Of Urine, Incontinence Of Stool Additional Complaint(s): 27 year old male with a history of seizures presents to the ED after he had a seizure prior to his arrival. The patient was diagnosed 1 year ago with seizures, regularly follows up with his neurologist and his PMD, and is compliant with his Keppra. The seizure was witnessed by his mother. She reports that he was getting ready for work this morning when she noticed his stare and asked him how he was feeling. He began shaking, she brought him to lay on the bed and he had a grand mal seizure. Mother woke him with an ice pack to the neck. Otherwise, denies headache, dizziness, focal weakness, shortness of breath, chest pain, speech problems, motor or sensory deficits, incontinence and biting of the tongue or lips. PMD: Dr. Adam Bob Past Medical History Reviewed: Historical Data, Nursing Documentation, Vital Signs Vital Signs: Last Vital Signs Temp 98.1 F 09/10/18 08:48 Pulse 65 09/10/18 08:48 Resp 16 09/10/18 08:48 BP 127/76 09/10/18 08:48 Pulse Ox 99 09/10/18 08:48 - Medical History PMH: Mitral Valve Prolapse, Seizures Denies: HIV, Chronic Kidney Disease - Surgical History Other surgeries: Ventricular septal defect repaired by open heart surgery - Family History Family History: States: Unknown Family Hx - Social History Current smoker - smoking cessation education provided: No Alcohol: None Drugs: Cannabis - Home Medications Home Medications: Ambulatory Orders Medication Instructions Recorded carBAMazepine [TEGretol] 200 mg PO TID #90 tab 03/15/17 - Allergies Allergies/Adverse Reactions: Allergies Allergy/AdvReac Type Severity Reaction Status Date / Time No Known Allergies Allergy Verified 07/20/17 15:43 Review of Systems ROS Statement: Except As Marked, All Systems Reviewed And Found Negative Neurological: Positive for: Seizures Physical Exam - Reviewed Nursing Documentation Reviewed: Yes Vital Signs Reviewed: Yes - Physical Exam Appears: Positive for: No Acute Distress Head Exam: Positive for: ATRAUMATIC, NORMAL INSPECTION, NORMOCEPHALIC Skin: Positive for: Normal Color, Warm, Dry Eye Exam: Positive for: EOMI, Normal appearance, PERRL Neck: Positive for: Normal, Painless ROM, Supple Cardiovascular/Chest: Positive for: Regular Rate, Rhythm. Negative for: Murmur Respiratory: Positive for: Normal Breath Sounds. Negative for: Respiratory Distress Gastrointestinal/Abdominal: Positive for: Normal Exam, Soft. Negative for: Tenderness Extremity: Positive for: Normal ROM (x 4). Negative for: Deformity Neurologic/Psych: Positive for: Alert (and awake), Oriented. Negative for: Motor/Sensory Deficits, Other (focal weakness) - Laboratory Results Result Diagrams: 09/10/18 09:18 09/10/18 09:18 - ECG O2 Sat by Pulse Oximetry: 99 Medical Decision Making Medical Decision Makin:53 ImpressionL break through seizure Initial Plan: --CMP --CBC --Levetiracem --Magnesium --Glucose POC Scribe Attestation: Documented by Hilda Frazier acting as a scribe for Frieda Ramey MD Provider Scribe Attestation: All medical record entries made by the Scribe were at my direction and pe rsonally dictated by me. I have reviewed the chart and agree that the record accurately reflects my personal performance of the history, physical exam, medical decision making, and the department course for this patient. I have also personally directed, reviewed, and agree with the discharge instructions and disposition. Disposition - Clinical Impression Clinical Impression: Seizure disorder - Patient ED Disposition Is Patient to be Admitted: No Doctor Will See Patient In The: Office Counseled Patient/Family Regarding: Diagnosis, Need For Followup - Disposition Referrals: Phoenix Manuel MD [Medical Doctor] - Enriqueta Duenas MD [Medical Doctor] - [facility] [Outside] Disposition: Routine/Home Disposition Time: 10:45 Condition: STABLE Additional Instructions: continue your medicines. we have attempted to reach your neurologist, Dr. Oneyda Carlin, without success. Please contact your neurologist for further instructions. Instructions: Seizures, Adult (DC) Forms: [employer] (Gabonese), [facility] ED School/Work Excuse - POA Present On Arrival: None
[2018-09-10 11:33] VITALS: BP 135/75; PULSE 58; RESP 12; TEMP 98.3
== END 2018-09-10 11:20 | disposition home or self-care (01) ==
LOC: H.ER 08:34
DX: G40.909 Epilepsy, unspecified, not intractable, without status epilepticus (principal)

== ENCOUNTER 2018-11-01 16:26 | Emergency (ER) | payer MEDICAID ==
[2018-11-01 16:26] VITALS: BMI 14.3
[2018-11-01 16:48] VITALS: BP 136/69; PULSE 71; RESP 16; TEMP 98.6; O2SAT 98
--- NOTE | 2018-11-01 18:43 | ED PDOC ---
HPI: Skin/Bite Injury Time Seen by Provider: 11/01/18 17:04 Chief Complaint (Nursing): Abnormal Skin Integrity Chief Complaint (Provider): Cyst History Per: Patient History/Exam Limitations: no limitations Onset/Duration Of Symptoms: Days (4) Current Symptoms Are (Timing): Still Present Location Of Injury: Right: Thigh Quality Of Symptoms: Painful Additional History Per: Patient Additional Complaint(s): 27yo male, otherwise well, comes to ER with a cyst to his right inner thigh, present for the past 4 days. Patient states he previously had a cyst removal from the same area; he states he was not informed if the cyst was an abscess. Patient reports 4 days ago, he noticed redness and irritation in the area, which has now increased and is more painful. He has not taken any medication for his symptoms. Patient denies any drainage from the area; he also denies any fever, chills or night sweats. PMD: Dr. Bob Past Medical History Reviewed: Historical Data, Nursing Documentation, Vital Signs Vital Signs: Last Vital Signs Temp 98.6 F 11/01/18 16:47 Pulse 71 11/01/18 16:47 Resp 16 11/01/18 16:47 BP 136/69 11/01/18 16:47 Pulse Ox 98 11/01/18 16:47 - Medical History PMH: Mitral Valve Prolapse, Seizures Denies: HIV, Chronic Kidney Disease - Surgical History Other surgeries: Open heart surgery at age 7 - Family History Family History: States: Unknown Family Hx - Home Medications Home Medications: Ambulatory Orders Medication Instructions Recorded carBAMazepine [TEGretol] 200 mg PO TID #90 tab 03/15/17 Cephalexin [cephalexin] 500 mg PO QID 7 Days cap 11/01/18 - Allergies Allergies/Adverse Reactions: Allergies Allergy/AdvReac Type Severity Reaction Status Date / Time No Known Allergies Allergy Verified 11/01/18 16:45 Review of Systems ROS Statement: Except As Marked, All Systems Reviewed And Found Negative Constitutional: Positive for: Sweats. Negative for: Fever, Chills Skin: Positive for: Other (cyst to right inner thigh) Physical Exam - Reviewed Nursing Documentation Reviewed: Yes Vital Signs Reviewed: Yes - Physical Exam Appears: Positive for: Non-toxic, No Acute Distress Head Exam: Positive for: ATRAUMATIC, NORMAL INSPECTION, NORMOCEPHALIC Neck: Positive for: Supple Cardiovascular/Chest: Positive for: Regular Rate, Rhythm Respiratory: Positive for: Normal Breath Sounds Extremity: Positive for: Normal ROM, Other (on the medial right thigh, ther is a 3.5-4cm firm area with erythema and a fluctuant center. no streaking noted. uable to express fluid on manual palpation. area is tender to touch.). Negative for: Deformity Neurologic/Psych: Positive for: Alert, Oriented. Negative for: Motor/Sensory Deficits - ECG O2 Sat by Pulse Oximetry: 98 (RA) Pulse Ox Interpretation: Normal Medical Decision Making Medical Decision Making: Impression: 27yo male w/ a likely abscess Plan: -- Incision and drainage to be done at site -- Lidocaine 1% ordered for local anesthesia -- See procedure note 2015 No purulent discharge expressed during incision and drainage; provider explored area with hemostat, no resultant discharge. Wound cleaned and approximated using steri-strips. Patient informed on wound care, instructed to take antibiotics as prescribed and return instructions given. Stable for discharge home. - Scribe Attestation: Documented by Vera Shah acting as a scribe for TRA Hdez Provider Attestation: All medical record entries made by the Scribe were at my direction and personally dictated by me. I have reviewed the chart and agree that the record accurately reflects my personal performance of the history, physical exam, medical decision making, and the department course for this patient. I have also personally directed, reviewed, and agree with the discharge instructions and disposition. Disposition - Clinical Impression Clinical Impression: Abscess - Patient ED Disposition Is Patient to be Admitted: No Counseled Patient/Family Regarding: Diagnosis, Need For Followup, Rx Given - Disposition Referrals: Adam Bob MD [Family Provider] - Disposition: Routine/Home Disposition Time: 20:19 Condition: STABLE Additional Instructions: Take full course of antibiotics as prescribed. Use warm compresses on Right thigh to see if area improves. Return to ER if you develop fevers, chills, night sweats. Tylenol or Ibuprofen for the pain. The steri-strips will fall off on their own in the next few days. Do not attempt to remove them. Prescriptions: Cephalexin [cephalexin] 500 mg PO QID 7 Days cap Instructions: Boil (DC), Abscess Incision and Drainage (DC) Forms: [employer] (Jordanian) Print Language: ESTONIAN - Incision & Drainage Of Abscess Anesthesia: Lidocaine 2%, With Epi Used During Procedure: Continuous Pulse Oximetry Prep Used: Sterile Water, Betadine Procedure: Incised W/Scalpel Blade#: (15), Irrigated Cavity W/Saline, Packed W/Gauze
[2018-11-01] MEDS ORDERED: Lidocaine 2% w Epi 1:100,000 Inj IJ ONE ×2 (18:45→18:56)
== END 2018-11-01 21:01 | disposition home or self-care (01) ==
LOC: H.ER 16:26
DX: L02.415 Cutaneous abscess of right lower limb (principal)

== ENCOUNTER 2018-11-08 14:18 | Emergency (ER) | payer OTHER, MEDICAID ==
[2018-11-08 14:18] VITALS: BMI 14.3
[2018-11-08 14:33] VITALS: BP 111/63; PULSE 60; RESP 18; TEMP 98.5; O2SAT 97
[2018-11-08] MEDS ORDERED: Tdap Vaccine 0.5 ml Vial (10-64 yrs) IM ONE ×2 (14:38→14:44)
--- NOTE | 2018-11-08 14:45 | ED PDOC ---
Upper Extremity Pain/Injury Time Seen by Provider: 11/08/18 14:34 Chief Complaint (Nursing): Finger,Hand,&Wrist Chief Complaint (Provider): Upper Extremity Injury History Per: Patient History/Exam Limitations: no limitations Onset/Duration Of Symptoms: Days (2x) Current Symptoms Are (Timing): Still Present Severity: Moderate Additional Complaint(s): 27 year old male with no pertinent past medical history presents to the ED for an evaluation of a left upper extremity injury that occurred yesterday. Patient reports that yesterday at work, a door accidentally closed on his left third digit, and he has had pain ever since. Patient denies having numbness or tingling. Tetanus not up to date. PMD: None provided. Past Medical History Reviewed: Historical Data, Nursing Documentation, Vital Signs Vital Signs: Last Vital Signs Temp 98.5 F 11/08/18 14:28 Pulse 60 11/08/18 14:28 Resp 18 11/08/18 14:28 BP 111/63 11/08/18 14:28 Pulse Ox 97 11/08/18 14:28 - Medical History PMH: Mitral Valve Prolapse, Seizures Denies: HIV, Chronic Kidney Disease - Surgical History Surgical History: Hernia Repair Other surgeries: VSD repair - Family History Family History: States: No Known Family Hx - Social History Current smoker - smoking cessation education provided: Yes Alcohol: None Drugs: Cannabis - Immunization History Hx Tetanus Toxoid Vaccination: No - Home Medications Home Medications: Ambulatory Orders Medication Instructions Recorded carBAMazepine [TEGretol] 200 mg PO TID #90 tab 03/15/17 Cephalexin [cephalexin] 500 mg PO QID 7 Days cap 11/01/18 - Allergies Allergies/Adverse Reactions: Allergies Allergy/AdvReac Type Severity Reaction Status Date / Time No Known Allergies Allergy Verified 11/08/18 14:27 Review of Systems ROS Statement: Except As Marked, All Systems Reviewed And Found Negative Musculoskeletal: Positive for: Other (left 3rd digit pain) Neurological: Negative for: Numbness ((-) tingling) Physical Exam - Reviewed Nursing Documentation Reviewed: Yes Vital Signs Reviewed: Yes - Physical Exam Appears: Positive for: Well, Non-toxic, No Acute Distress Head Exam: Positive for: ATRAUMATIC, NORMOCEPHALIC Pulses-Radial (L): 2+ Pulses-Radial (R): 2+ Extremity: Positive for: Tenderness (left third digit with mild tenderness to distal phalanx without deformity. Nail intact. Superficial abrasion on distal phalanx.), Capillary Refill (left third digit: <2 seconds). Negative for: Normal ROM (left third digit held in extension. Limited ROM secondary to pain.) Neurologic/Psych: Positive for: Alert, Oriented (3x) - ECG O2 Sat by Pulse Oximetry: 97 (RA) Pulse Ox Interpretation: Normal - Radiology X-Ray: Interpreted by Me (Finger x-ray) X-Ray Interpretation: No Acute Disease Medical Decision Making Medical Decision Makin:34 Initial impression: 27 year old male with a left third digit injury. Initial plan: -- Xray hand left 3 views -- adacel (10-64 yrs) 0.5 ml IM -- reevaluation Abrasions cleansed, bacitracin ointment applied, dressed. Finger immobilized in splint. Scribe Attestation: Documented by Henrietta Blair, acting as a scribe for Atif Ambrose Provider Scribe Attestation: All medical record entries made by the Scribe were at my direction and personally dictated by me. I have reviewed the chart and agree that the record accurately reflects my personal performance of the history, physical exam, medical decision making, and the department course for this patient. I have also personally directed, reviewed, and agree with the discharge instructions and disposition. Disposition - Clinical Impression Clinical Impression: Finger injury - Patient ED Disposition Is Patient to be Admitted: No - Disposition Referrals: [facility] [Outside] Disposition: Routine/Home Disposition Time: 15:51 Condition: STABLE Additional Instructions: FOLLOW UP WITH PMD FOR FURTHER EVALUATION RETURN TO ED IMMEDIATELY IF SYMPTOMS WORSEN ELENA ROSE, thank you for letting us take care of you today. Your provider was Wilbur Hedrick MD and you were treated for W/C:LT HAND INJURY. The emergency medical care you received today was directed at your acute symptoms. If you were prescribed any medication, please fill it and take as directed. It may take several days for your symptoms to resolve. Return to the Emergency Department if your symptoms worsen, do not improve, or if you have any other problems. Please contact your doctor or call one of the physicians/clinics you have been referred to that are listed on the Patient Visit Information form that is included in your discharge packet. Bring any paperwork you were given at discharge with you along with any medications you are taking to your follow up visit. Our treatment cannot replace ongoing medical care by a primary care provider outside of the emergency department. Thank you for allowing the [facility] team to be part of your care today. If you had an X-Ray or CT scan: A Radiologist will review the ED reading if any change in treatment is needed we will contact you. If you had a blood, urine, or wound culture: It will take several days for the results, if any change in treatment is needed we will contact you. If you had an STI test: It will take 48 hours for the results. Please call after 1 week if you have not heard back. Instructions: Skin Abrasions (DC), Common Finger Injuries (DC) Forms: [employer] (Canadian), [facility] ED School/Work Excuse Print Language: SETSWANA
--- NOTE | 2018-11-08 15:48 | RAD ---
Date of service: 11/08/2018 PROCEDURE: Left middle finger radiographs. HISTORY: trauma COMPARISON: None. TECHNIQUE: AP radiograph of the left hand, as well as spot oblique and lateral images of left middle finger were obtained. FINDINGS: LEFT MIDDLE FINGER: Bone alignment and mineralization are normal. There is no acute displaced fracture or bone destruction. JOINTS: Normal. SOFT TISSUES: Normal. OTHER FINDINGS: None. IMPRESSION: No acute fracture or dislocation.
== END 2018-11-08 16:30 | disposition home or self-care (01) ==
LOC: H.ER 14:18
DX: S69.92XA Unspecified injury of left wrist, hand and finger(s), initial encounter (principal); F17.200 Nicotine dependence, unspecified, uncomplicated; Z23 Encounter for immunization

== ENCOUNTER 2018-11-20 10:55 | Emergency (ER) | payer MEDICAID, OTHER ==
[2018-11-20 11:07] VITALS: RESP 18; TEMP 97
[2018-11-20 11:09] VITALS: BMI 24.7
[2018-11-20] MEDS ORDERED: Sodium Chloride 0.9% 1,000 ML IV STA (13:02)
[2018-11-20 13:36] LABS: BASO % 0.4 % (0.0-2.0); EOS # 0.1 K/uL (0.0-0.7); EOS % 1.2 % (0.0-4.0); LYMPH # 1.2 K/uL (1.0-4.3); LYMPH % 13.3 % (20.0-40.0); MEAN CORPUSCULAR HEMOGLOBIN 29.3 pg (27.0-31.0); MEAN CORPUSCULAR HGB CONC 31.8 g/dL (33.0-37.0); MEAN PLATELET VOLUME 8.9 fl (7.2-11.7); MONO # 0.7 K/uL (0.0-0.8); MONO % 7.1 % (0.0-10.0); NEUT # 7.2 K/uL (1.8-7.0); RBC 4.43 Mil/uL (4.40-5.90); RED CELL DISTRIBUTION WIDTH 13.6 % (11.5-14.5); WHITE BLOOD COUNT 9.3 K/uL (4.8-10.8)
[2018-11-20 13:44] LABS: BLOOD UREA NITROGEN 21 mg/dl (9-20); CALCIUM 9.6 mg/dL (8.4-10.2); GFR NON-AFRICAN AMERICAN > 60
--- NOTE | 2018-11-20 14:41 | RAD ---
Date of service: 11/20/2018 HISTORY: possible admission COMPARISON: 06/17/2016 FINDINGS: LUNGS: No active pulmonary disease. PLEURA: No significant pleural effusion identified, no pneumothorax apparent. CARDIOVASCULAR: No atherosclerotic calcification present No radiographic findings to suggest acute or significant cardiovascular disease. Incidental Finding(s): Postoperative changes related to sternotomy. OSSEOUS STRUCTURES: No significant abnormalities. VISUALIZED UPPER ABDOMEN: Distended stomach uncertain etiology/significance. OTHER FINDINGS: None. IMPRESSION: No active disease. No significant interval change compared to the prior examination(s).
--- NOTE | 2018-11-20 15:12 | ED PDOC ---
HPI: Seizure Time Seen by Provider: 11/20/18 12:18 Chief Complaint (Nursing): Seizure Chief Complaint (Provider): Seizure History Per: Patient History/Exam Limitations: no limitations ( ) Recent Seizure Activity Began: Just Before Arrival Number Of Seizures: Multiple (2) Precipitating Factor(s): None Post-ictal Period: Yes Additional History Per: Family (mother) Additional Complaint(s): 27 year old male with a history of seizures presents to the ED with a headache after two seizures at home. While waiting to be seen in the ED, he had another seizure and was given 2 mg of Ativan. The seizure then broke and the patient remained postictal. Further evaluation confirmed two seizures before arrival. Patient was seen diaphoretic during seizure. Patient takes Keppra BID and was able to take morning dose today. Discussed with mother over the phone who states she wants patient to get a new neurologist as the current neurologist is in [place] and the patient is having difficulty making all his appointments. PMD: Dr. Bob Past Medical History Reviewed: Historical Data, Nursing Documentation, Vital Signs Vital Signs: Last Vital Signs Temp 97 F L 11/20/18 11:07 Pulse 88 11/20/18 15:01 Resp 18 11/20/18 15:01 BP 126/72 11/20/18 15:01 Pulse Ox 99 11/20/18 15:01 KIM Report Viewed: Yes - Medical History PMH: Mitral Valve Prolapse, Seizures Denies: HIV, Chronic Kidney Disease - Surgical History Surgical History: Hernia Repair - Family History Family History: States: Unknown Family Hx - Immunization History Hx Tetanus Toxoid Vaccination: No - Home Medications Home Medications: Ambulatory Orders Medication Instructions Recorded carBAMazepine [TEGretol] 200 mg PO TID #90 tab 03/15/17 Cephalexin [cephalexin] 500 mg PO QID 7 Days cap 11/01/18 - Allergies Allergies/Adverse Reactions: Allergies Allergy/AdvReac Type Severity Reaction Status Date / Time No Known Allergies Allergy Verified 11/20/18 11:52 Review of Systems ROS Statement: Except As Marked, All Systems Reviewed And Found Negative Genitourinary Male: Negative for: Incontinence Neurological: Positive for: Seizures Physical Exam - Reviewed Nursing Documentation Reviewed: Yes Vital Signs Reviewed: Yes - Physical Exam Appears: Positive for: No Acute Distress Head Exam: Positive for: ATRAUMATIC, NORMAL INSPECTION, NORMOCEPHALIC Skin: Positive for: Normal Color, Warm, Dry Eye Exam: Positive for: Normal appearance, EOMI, PERRL Cardiovascular/Chest: Positive for: Regular Rate, Rhythm. Negative for: Murmur Respiratory: Positive for: Normal Breath Sounds. Negative for: Respiratory Distress Gastrointestinal/Abdominal: Positive for: Normal Exam, Soft. Negative for: Tenderness Extremity: Positive for: Normal ROM (x 4). Negative for: Deformity Neurologic/Psych: Positive for: Alert, Oriented (x 3 now that post ictal state has resolved), Other - Laboratory Results Result Diagrams: 11/20/18 13:29 11/20/18 13:29 - ECG O2 Sat by Pulse Oximetry: 99 (RA) Pulse Ox Interpretation: Normal Medical Decision Making Medical Decision Makin:02 MDM: workup for seizure Iv fluids to prevent rhabdomyolysis Toradol and Ativan given reassess patient 1750 Pt with normal labs. Given 2 liters of IV fluids. Now AAOx3 and his father is in the room. Discussed admission with patient due to breakthrough seizure and increased frequency but patient is refusing admission. Pt has signed AMA form. Referral for Dr. Duenas was given. PT states he does not need a prescription for Keppra. - Scribe Attestation: Documented by Hilda Frazier acting as a scribe for Henrietta Escobar MD Provider Scribe Attestation: All medical record entries made by the Scribe were at my direction and personally dictated by me. I have reviewed the chart and agree that the record accurately reflects my personal performance of the history, physical exam, medical decision making, and the department course for this patient. I have also personally directed, reviewed, and agree with the discharge instructions and disposition. Disposition - Clinical Impression Clinical Impression: Epileptic seizures - Patient ED Disposition Is Patient to be Admitted: No - Disposition Referrals: Enriqueta Duenas MD [Medical Doctor] - Disposition: Against Medical Advice Condition: IMPROVED Additional Instructions: Follow up with neurologist within one week. Continue to take Keppra. Return to the emergency department if you develop more frequent seizures or if new seizures develop. Instructions: Epilepsy in Adults, Seizures, Adult (DC) Forms: [employer] (Malawian), [facility] ED School/Work Excuse Print Language: [id number]
[2018-11-20 19:02] VITALS: BP 129/69; PULSE 70; O2SAT 100
== END 2018-11-20 18:20 | disposition home or self-care (01) ==
LOC: H.ER 10:55
DX: G40.909 Epilepsy, unspecified, not intractable, without status epilepticus (principal); I34.1 Nonrheumatic mitral (valve) prolapse
CPT/HCPCS: 71045; 80048; 85025; 87804; 96374; 96375; 99285; J1885; J2060; J7030

== ENCOUNTER 2018-11-28 13:29 | Observation (INO) | payer OTHER, MEDICAID ==
--- NOTE | 2018-12-02 14:19 | CP.PCM.CON ---
History of Present Illness - History of Present Illness History of Present Illness: Neurology consult placed by hospitalist service. is a 28 yr old right handed male who has a history of epilepsy for several years and recently had several breakthrough seizures. On November 20, Mr Camacho had several seizures at home and then had another seizure in the ER. He was admitted and his keppra was increased from 250 mg bid to 500 mg bid. I saw him in clinic and he related that he only has seizures at night. Semiology is as follows: no aura, followed by generalzied tonic clonic activity followed by urinary incontinence and fatigue. ROS: no diarrhea, no vomiting, no headache, no weakness. PMH/PSH: none FH/SH: cousin has epilepsy. 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 No tobacco, no etoh. All:nkda. AAOX3. PERRL. CN 2-12 normal EOMI. Motor: 5/5 ul and ll bl. sensory: normal Gait normal +2 dtr ul and ll bl. Toes downgoing. No clonus. Past Patient History - Infectious Disease Hx of Infectious Diseases: None - Tetanus Immunizations Tetanus Immunization: Unknown - Past Medical History & Family History Past Medical History?: Yes - Past Social History Smoking Status: marijuana - CARDIAC Hx Mitral Valve Prolapse: Yes (2007) - PULMONARY Hx Respiratory Disorders: No - NEUROLOGICAL Hx Seizures: Yes (last 11/27 x5) - HEENT Hx HEENT Problems: No - RENAL Hx Chronic Kidney Disease: No - ENDOCRINE/METABOLIC Hx Endocrine Disorders: No - HEMATOLOGICAL/ONCOLOGICAL Hx Human Immunodeficiency Virus (HIV): No - INTEGUMENTARY Hx Dermatological Problems: No - MUSCULOSKELETAL/RHEUMATOLOGICAL Hx Musculoskeletal Disorders: No Hx Falls: Yes - GASTROINTESTINAL Hx Gastrointestinal Disorders: No - GENITOURINARY/GYNECOLOGICAL Hx Genitourinary Disorders: No - PSYCHIATRIC Hx Psychophysiologic Disorder: No Hx Substance Use: Yes (marijuana) - SURGICAL HISTORY Hx Surgeries: Yes Hx Herniorrhaphy: Yes Other/Comment: VSD repair. Hernia sx. 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 He is on an appropriate dose of medication and we will admit him for video EEG monitoring and observe the efficaciousness of this keppra dose. Plan; 1. Seizure precautions. 2. Video EEG 24 hours 3. Continue Keppra [address] you [address] Duenas Neurology and EPilepsy
--- NOTE | 2018-12-02 14:51 | CP.PCM.HP ---
<Naresh Fontenot - Last Filed: 12/02/18 15:07> History of Present Illness - History of Present Illness History of Present Illness: HPI: 28 y/o male admitted for 24 hour EEG monitoring as per Dr. Webb. Pt states he has been having night time seizures for the past year followed by transient episodes of memory loss. Last seizure was Tuesday in which he reports he was taken to the ED and was told he had 5 seizures. Was recently started on Keppra by Dr. Webb. States he has had numerous brain imaging in the past which have not revealed any abnormalities. ROS: +Cough (non productive). Denies fever/chills, myalgias, dyspnea, chest pain, motor weakness, numbness/tingling. PMD: Dr. Mast Neurologist: Dr. 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, Smokes marijuana, Denies alcohol or tobacco use Present on Admission - Present on Admission Any Indicators Present on Admission: No Past Patient History - Infectious Disease Hx of Infectious Diseases: None - Tetanus Immunizations Tetanus Immunization: Unknown - Past Medical History & Family History Past Medical History?: Yes - Past Social History Smoking Status: marijuana - CARDIAC Hx Mitral Valve Prolapse: Yes (2007) - PULMONARY Hx Respiratory Disorders: No - NEUROLOGICAL Hx Seizures: Yes (last 11/27 x5) - HEENT Hx HEENT Problems: No - RENAL Hx Chronic Kidney Disease: No - ENDOCRINE/METABOLIC Hx Endocrine Disorders: No - HEMATOLOGICAL/ONCOLOGICAL Hx Human Immunodeficiency Virus (HIV): No - INTEGUMENTARY Hx Dermatological Problems: No - MUSCULOSKELETAL/RHEUMATOLOGICAL Hx Musculoskeletal Disorders: No Hx Falls: Yes - GASTROINTESTINAL Hx Gastrointestinal Disorders: No - GENITOURINARY/GYNECOLOGICAL Hx Genitourinary Disorders: No - PSYCHIATRIC Hx Psychophysiologic Disorder: No Hx Substance Use: Yes (marijuana) - SURGICAL HISTORY Hx Surgeries: Yes Hx Herniorrhaphy: Yes Other/Comment: VSD repair. Hernia sx. - ANESTHESIA Hx Anesthesia: Yes Hx Anesthesia Reactions: No Hx Malignant Hyperthermia: No Meds Allergies/Adverse Reactions: Allergies Allergy/AdvReac Type Severity Reaction Status Date / Time No Known Allergies Allergy Verified 11/20/18 11:52 Physical Exam - Constitutional Appears: No Acute Distress - Head Exam Head Exam: NORMAL INSPECTION - Eye Exam Eye Exam: Normal appearance - ENT Exam ENT Exam: Mucous Membranes Moist, Normal Oropharynx - Neck Exam Neck exam: Positive for: Lymphadenopathy - Respiratory Exam Respiratory Exam: Clear to Auscultation Bilateral. absent: Rales, Wheezes - Cardiovascular Exam Cardiovascular Exam: Clicks, +S1, +S2 - GI/Abdominal Exam GI & Abdominal Exam: Normal Bowel Sounds, Soft - Extremities Exam Extremities exam: Positive for: normal inspection - Neurological Exam Neurological exam: Alert, Oriented x3 - Psychiatric Exam Psychiatric exam: Normal Affect - Skin Skin Exam: Normal Color Results - Vital Signs Recent Vital Signs: Last Vital Signs Temp Pulse 58 L 12/02/18 13:38 Resp 15 12/02/18 13:38 BP Pulse Ox Assessment & Plan - Assessment and Plan (Free Text) Assessment: 28 y/o male admitted for 24 hour EEG monitoring as per Dr. Webb. Pt states he has been having night time seizures for the past year followed by transient episodes of memory loss. #Seizures -Unknown etiology - 24 hr EEG monitoring bedside -Will continue pt on home antiepileptic medication -Keppra 500mg BID po -Neurologist: Dr. Webb -Seizure precautions -Monitor Vitals -Frequent neuro checks #Cough -No fevers, no cerning features on exam -Likely viral syndrome -Tylenol prn for fever #Diet -Regular Discussed with Dr. Hartmann <Ainsley Hartmann - Last Filed: 12/02/18 17:40> Results - Vital Signs Recent Vital Signs: Last Vital Signs Temp 97.8 F 12/02/18 16:56 Pulse 60 12/02/18 16:56 Resp 16 12/02/18 16:56 BP 118/66 12/02/18 16:56 Pulse Ox 100 12/02/18 16:56 Attending/Attestation - Attestation I have personally seen and examined this patient.: Yes I have fully participated in the care of the patient.: Yes I have reviewed all pertinent clinical information: Yes
--- NOTE | 2018-12-03 09:48 | PCM.VEEG ---
Video EEG - Procedure Start Date: 12/02/18 Start Time: 14:30 End Date: 12/03/18 End Time: 07:40 Technical Summary: DATA ACQUISITION: This was a multichannel inpatient video-EEG, a minimum of 22 channels were uti lized, performed in accordance with recommendations specified by the [place] Clinical Neurophysiology Society (Aden Hannah et al. ACNS Guideline 1: Minimum Technical Requirements for Performing Clinical Electroencephalography. Journal of Clinical Neurophysiology 2016;33:303-7). The 10-20 electrode placement system was utilized in accordance with guidelines detailed by the International Federation of Clinical Neurophysiology (Sulaiman Sunshine et al. The Ten-Twenty Electrode System of the International Federation. Recommendations for the Practice of Clinical Neurophysiology: Guidelines of the International Federation of Clinical Physiology 1999; EEG Suppl. 52.). DATA REVIEW / SPIKE DETECTION / DIGITAL ANALYSIS: The entire EEG was scanned and reviewed. Synchronized audio and video recording were reviewed at the time of each alarm and whenever an abnormality or suspicious activity was noted. The entire recording was analyzed utilizing an automated digital spike and seizure analysis program and all automatic spike and seizure detections were manually reviewed. A compressed spectral array was displayed and reviewed alongside the raw EEG tracings. In addition, further analysis of the EEG was performed when abnormalities were identified, including montage changes, dipole source localization, and frequency band identification. Video portion of the study is necessary to correlate abnormal EEG activity with clinical behavior. This study was attended 24 hours per day. - Interpretation Description of the study: Indication; Epilepsy EEG Finding during wakefulness: During active states, the EEG was characterized by 14-25 Hz, 15-30 uV activity bilaterally in fronto-central regions. Resting wakefulness was characterized by a symmetric posterior dominant rhythm of 9 to 10 Hz, 30-50 uV, which was reactive to eye opening and closing. Drowsiness was associated with slow roving eye movements, slowing and fragmentation of the posterior dominant rhythm, and bilateral 4-7 Hz, 40-70 uV theta activity, sometimes with a shifting predominance. Hyperventilation and photic stimulation were not performed EEG Finding during sleep: Light sleep was recorded and was characterized by fronto-central slowing at 5-7 H, 50-125 uV, sharp central vertex waves, bilateral sleep spindles, and K- complexes; shifting asymmetries were evident. Deeper stages of sleep were recorded and were characterized an increasing frequency of 1-4 Hz, 50-100 uV delta activity. REM sleep was also recorded and was characterized by mixed frequency (3-15 Hz) low voltage (< 20 uV) activity with clusters of rapid horizontal and vertical eye movements. There were no significant asymmetries noted Interictal non-epileptiform abnormalities: None Interictal epileptiform abnormalities: None Ictal epileptiform abnormalities: None Multiple PB activations; no EEG changes, most likely all accidental. Induction procedures: None - Impression Impression: This is a normal inpatient Video EEG monitoring study.
--- NOTE | 2018-12-03 13:56 | CP.PCM.PN ---
Subjective - Date & Time of Evaluation Date of Evaluation: 12/03/18 Time of Evaluation: 13:53 - Subjective Subjective: Neurology Progress Note: Mr. Camacho was seen and evaluated today at bedside during his elective inpatient VEEG. He had no complaints. There were no acute events overnight. I discussed the VEEG results with him after talking with Dr. Duenas. There were no seizures and no abnormalities detected. He did however, have some PVC on the EKG. He is aware that he has a cardiac history and will follow up with cardiology as soon as he leaves the hospital. Objective - Vital Signs/Intake and Output Vital Signs (last 24 hours): Temp Pulse Resp BP Pulse Ox 98.6 F 71 18 118/55 L 98 12/03/18 12:00 12/03/18 12:00 12/03/18 12:00 12/03/18 12:00 12/03/18 12:00 - Medications Medications: Current Medications Acetaminophen (Tylenol 325mg Tab) 650 mg PO Q6 PRN PRN Reason: Fever >100.4 F Levetiracetam (Keppra) 500 mg PO Q12 ROLANDO Last Admin: 12/03/18 09:28 Dose: 500 mg - Constitutional Appears: Well - Head Exam Head Exam: ATRAUMATIC, NORMAL INSPECTION, NORMOCEPHALIC - Eye Exam Eye Exam: EOMI, Normal appearance, PERRL Pupil Exam: NORMAL ACCOMODATION, PERRL - ENT Exam ENT Exam: Mucous Membranes Moist, Normal Exam - Neck Exam Neck Exam: Full ROM, Normal Inspection. absent: Lymphadenopathy - Respiratory Exam Respiratory Exam: Clear to Ausculation Bilateral, NORMAL BREATHING PATTERN - Cardiovascular Exam Cardiovascular Exam: REGULAR RHYTHM, +S1, +S2. absent: Murmur - GI/Abdominal Exam GI & Abdominal Exam: Soft, Normal Bowel Sounds. absent: Tenderness - Extremities Exam Extremities Exam: Full ROM, Normal Capillary Refill, Normal Inspection. absent: Joint Swelling, Pedal Edema - Back Exam Back Exam: NORMAL INSPECTION - Neurological Exam Neurological Exam: Alert, Awake, CN II-XII Intact, Normal Gait, Oriented x3 Neuro motor strength exam: Left Upper Extremity: 5, Right Upper Extremity: 5, Left Lower Extremity: 5, Right Lower Extremity: 5 - Psychiatric Exam Psychiatric exam: Normal Affect, Normal Mood - Skin Skin Exam: Dry, Intact, Normal Color, Warm Assessment and Plan (1) Epilepsy Assessment & Plan: Continue taking current dose of Keppra. Obtain 7-8 hours of sleep every night. Restricted from driving for 6 months. Will follow up with cardiology NORBERTO regarding PVCs (asymptomatic). Will follow up with Dr. Duenas as an outpatient. Status: Acute
[2018-12-03 14:57] LABS: BLOOD UREA NITROGEN 15 mg/dl (9-20); CALCIUM 9.3 mg/dL (8.4-10.2); GFR NON-AFRICAN AMERICAN > 60
--- NOTE | 2018-12-03 15:15 | CP.PCM.DIS ---
Provider - Provider Date of Admission: 12/02/18 13:33 Attending physician: Ainsley Hartmann MD Primary care physician: Dr Adam Bob Consults: 12/02/18 14:35 Neurology Consult Routine Comment: Consulting Provider: Enriqueta Duenas Consulting Physician: Enriqueta Duenas Reason for Consult: 24 video EEG Time Spent in preparation of Discharge (in minutes): 30 Diagnosis - Discharge Diagnosis (1) Seizure disorder Status: Chronic (2) Frequent seizures Status: Acute (3) History of ventricular septal defect repair Status: Chronic (4) Bigeminy Status: Acute Hospital Course - Lab Results Lab Results: Most Recent Lab Values Sodium 137 mmol/l (132-148) 12/03/18 14:15 Potassium 4.5 MMOL/L (3.6-5.0) 12/03/18 14:15 Chloride 97 mmol/L (98-107) L 12/03/18 14:15 Carbon Dioxide 27 mmol/L (22-30) 12/03/18 14:15 Anion Gap 18 (10-20) 12/03/18 14:15 BUN 15 mg/dl (9-20) 12/03/18 14:15 Creatinine 0.9 mg/dl (0.8-1.5) 12/03/18 14:15 Est GFR ( Amer) > 60 12/03/18 14:15 Est GFR (Non-Af Amer) > 60 12/03/18 14:15 Random Glucose 106 mg/dL (75-110) 12/03/18 14:15 Calcium 9.3 mg/dL (8.4-10.2) 12/03/18 14:15 Phosphorus 3.4 mg/dl (2.5-4.5) 12/03/18 14:15 Magnesium 1.8 MG/DL (1.6-2.3) 12/03/18 14:15 - Hospital Course Hospital Course: 28 y/o gent with hx of Ventricular Septal Defect with Repair at age 17 y/o ,was admitted for 24 hour EEG monitoring. Pt gives history that he has been having very frequent seizure like activity lateley . he was seen by Dr Duenas as an outpt who recommended starting Keppra 500 mg bid andadmission for 24 hour inpatient EEG monitoring. He denies any other symptoms except that his mother has been noticing the seizures almost everytime he is sleeping. Denies CP, no palpitation. 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 While on the Tele monitor, we noted some PVCs with bigemy. No electrolyte abnormality of his labs and pt is completely asymptomatic. Advised pt to ff up with his own Incident Analyst - ( he ff up with his Cardio at [facility] - in the same office as his PMD) Discharge Exam - Head Exam Head Exam: ATRAUMATIC, NORMAL INSPECTION, NORMOCEPHALIC - Eye Exam Eye Exam: EOMI, Normal appearance, PERRL Pupil Exam: NORMAL ACCOMODATION - ENT Exam ENT Exam: Mucous Membranes Moist, Normal External Ear Exam - Neck Exam Neck exam: Full Rom - Cardiovascular Exam Cardiovascular Exam: REGULAR RHYTHM, +S1, +S2 - GI/Abdominal Exam GI & Abdominal Exam: Normal Bowel Sounds, Soft. absent: Tenderness - Extremities Exam Extremities exam: full ROM, normal capillary refill, normal inspection, pedal pulses present - Back Exam Back exam: FULL ROM. 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
[2018-12-03 15:37] VITALS: BP 134/87; PULSE 67; RESP 14; TEMP 98.3; O2SAT 96
--- NOTE | 2018-12-04 09:25 | CARD ---
APPROVED REPORT Date of service: 12/03/2018 EKG Measurement Heart [id number] <Conclusion> Sinus rhythm with frequent premature ventricular complexes in a pattern of bigeminy Left ventricular hypertrophy Abnormal ECG
== END 2018-12-03 15:53 | disposition home or self-care (01) ==
LOC: H.ICU/CCU 12-02 13:33
PROVIDERS: ADMIT Internal Medicine; ATTEND Internal Medicine
DX: G40.909 Epilepsy, unspecified, not intractable, without status epilepticus (principal); I34.1 Nonrheumatic mitral (valve) prolapse; F12.90 Cannabis use, unspecified, uncomplicated; I49.3 Ventricular premature depolarization; R05 Cough; Z87.74 Personal history of (corrected) congenital malformations of heart and circulatory system
CPT/HCPCS: 80048; 83735; 84100; 87081; 93005; G0378

== ENCOUNTER 2019-01-07 13:30 | Observation (INO) | payer OTHER, MEDICAID ==
[2019-01-07 13:30] VITALS: BMI 24.7
--- NOTE | 2019-01-07 13:50 | ED PDOC ---
HPI: Seizure Time Seen by Provider: 01/07/19 13:38 Chief Complaint (Nursing): Seizure History Per: Patient Recent Seizure Activity Began: Just Before Arrival Length Of Seizures (Duration): Unknown Associated Symptoms: Bit Tongue Additional Complaint(s): Seizure episode, witness not available. Pt has no recollection of event. Found on floor with injury to right periorbital area. Pt taking Keppra 500mg BID for seizures. No incontinence Past Medical History - Medical History PMH: Mitral Valve Prolapse (2007), Seizures (last 11/27 x5) Denies: HIV, Chronic Kidney Disease - Surgical History Surgical History: Hernia Repair Other surgeries: repair of patent venricular septal defect. - Family History Family History: States: Unknown Family Hx - Immunization History Hx Tetanus Toxoid Vaccination: No - Home Medications Home Medications: Ambulatory Orders Medication Instructions Recorded levETIRAcetam [Keppra] 500 mg PO Q12 tab 12/03/18 - Allergies Allergies/Adverse Reactions: Allergies Allergy/AdvReac Type Severity Reaction Status Date / Time seafood Allergy SWELLING Uncoded 01/07/19 13:35 Review of Systems ROS Statement: Except As Marked, All Systems Reviewed And Found Negative Neurological: Positive for: Seizures Physical Exam - Reviewed Nursing Documentation Reviewed: Yes Vital Signs Reviewed: Yes - Physical Exam Appears: Positive for: Non-toxic, No Acute Distress Head Exam: Positive for: ATRAUMATIC, NORMAL INSPECTION, NORMOCEPHALIC Skin: Positive for: Normal Color, Warm, DRY Eye Exam: Positive for: EOMI, PERRL, Other (Right periorbital swelling and erythema. No palpable fracture) ENT: Positive for: Other (Bite strickland left side of tongue) Neck: Positive for: Normal, Painless ROM Cardiovascular/Chest: Positive for: Regular Rate, Rhythm Respiratory: Positive for: CNT, Normal Breath Sounds Gastrointestinal/Abdominal: Positive for: Normal Exam, Soft Back: Positive for: Normal Inspection Extremity: Positive for: Normal ROM Neurologic/Psych: Positive for: Alert, Oriented - Laboratory Results Result Diagrams: 01/07/19 13:55 01/07/19 13:55 Medical Decision Making Medical Decision Making: Discussed with Dr Duenas. Will load with 150 mg Keppra and icrease dose to [address] in obs Disposition - Clinical Impression Clinical Impression: Epileptic seizures - Patient ED Disposition Is Patient to be Admitted: Yes - Disposition Disposition Time: 15:57 Condition: FAIR Instructions: Epilepsy in Adults Forms: [facility] ([place]an)
[2019-01-07 14:12] LABS: BASO % 0.6 % (0.0-2.0); EOS # 0.1 K/uL (0.0-0.7); EOS % 1.7 % (0.0-4.0); HEMOGLOBIN 12.2 g/dL (12.0-18.0); LYMPH # 1.5 K/uL (1.0-4.3); LYMPH % 23.5 % (20.0-40.0); MEAN CELL VOLUME 89.7 fl (80.0-94.0); MEAN CORPUSCULAR HEMOGLOBIN 28.9 pg (27.0-31.0); MEAN CORPUSCULAR HGB CONC 32.2 g/dL (33.0-37.0); MEAN PLATELET VOLUME 8.7 fl (7.2-11.7); MONO # 0.4 K/uL (0.0-0.8); NEUT # 4.2 K/uL (1.8-7.0); NEUT % 68.2 % (50.0-75.0); NRBC % 0.1 % (0.0-0.0); RBC 4.24 Mil/uL (4.40-5.90); WHITE BLOOD COUNT 6.2 K/uL (4.8-10.8)
[2019-01-07 14:18] LABS: ALB/GLOB RATIO 1.7 (1.0-2.1); ALBUMIN 4.5 g/dL (3.5-5.0); ALT/SGPT 29 U/L (21-72); AST/SGOT 26 U/L (17-59); BLOOD UREA NITROGEN 20 mg/dl (9-20); CALCIUM 9.6 mg/dL (8.4-10.2); GFR NON-AFRICAN AMERICAN > 60
[2019-01-07 14:27] VITALS: O2SAT 100
--- NOTE | 2019-01-07 15:48 | CT ---
Date of service: 01/07/2019 PROCEDURE: CT HEAD WITHOUT CONTRAST. HISTORY: Possible seizure. Intracranial hemorrhage suspected COMPARISON: 07/20/2017 TECHNIQUE: Axial computed tomography images were obtained through the head/brain without intravenous contrast. Supplemental Coronal and Sagittal projections created and reviewed. Radiation dose: Total exam DLP = 839.61 mGy-cm. This CT exam was performed using one or more of the following dose reduction techniques: Automated exposure control, adjustment of the mA and/or kV according to patient size, and/or use of iterative reconstruction technique. FINDINGS: HEMORRHAGE: No intracranial hemorrhage. BRAIN: No mass effect or edema. No atrophy or chronic microvascular ischemic changes. VENTRICLES: Unremarkable. No hydrocephalus. CALVARIUM: Unremarkable. PARANASAL SINUSES: Unremarkable as visualized. No significant inflammatory changes. MASTOID AIR CELLS: Unremarkable as visualized. No inflammatory changes. OTHER FINDINGS: None. IMPRESSION: Negative CT of the Head. No significant interval change compared to the prior examination(s).
[2019-01-07] MEDS ORDERED: levETIRAcetam 1,500 MG in Sodium Chloride 0.9% 100 ML IVPB ONE (15:52)
[2019-01-07 17:18] VITALS: BP 124/74; PULSE 64; RESP 16; TEMP 98.1
--- NOTE | 2019-01-07 20:27 | CARD ---
APPROVED REPORT Date of service: 01/07/2019 EKG Measurement Heart [id number] <Conclusion> Sinus bradycardia with 1st degree AV block Incomplete right bundle branch block Borderline ECG
== END 2019-01-07 17:00 | disposition left against medical advice (07) ==
LOC: H.ER 13:30 → H.ERHOLD 15:58
PROVIDERS: ADMIT Student in an Organized Health Care Education/Training Program; ATTEND Student in an Organized Health Care Education/Training Program
DX: G40.909 Epilepsy, unspecified, not intractable, without status epilepticus (principal); I34.1 Nonrheumatic mitral (valve) prolapse
CPT/HCPCS: 70450; 80053; 80177; 85025; 93005; 96365; 99285; G0378; J1953

== ENCOUNTER 2019-02-05 11:00 | Emergency (ER) | payer OTHER, MEDICAID ==
[2019-02-05 11:03] VITALS: BMI 21.9
[2019-02-05] MEDS ORDERED: Tmp-Smz 800 mg-160 mg DS Tab PO STA (12:06)
[2019-02-05] MEDS ORDERED: Naproxen 500 MG TAB PO STA (12:07)
--- NOTE | 2019-02-05 13:04 | ED PDOC ---
HPI: Skin/Bite Injury Time Seen by Provider: 02/05/19 11:25 Chief Complaint (Nursing): Abnormal Skin Integrity Additional History Per: Patient Additional Complaint(s): 28 y/o male with PMH of seizure disorder comes to the ER for 1 week hx of boils in his right groin area. Patient reports it started as pimple and tried to manipulate which made it worse. + pus a week ago, currently no pus or opening, just little pain. Denies any erythema or fever, dysuria. PMH: Seizure disorder, congenital cardiac malformation PSH: Heart surgery Allg: Seafood SH: + Marijuana FH: + heart disease Past Medical History Vital Signs: Last Vital Signs Temp 97.4 F L 02/05/19 11:03 Pulse 77 02/05/19 11:03 Resp 17 02/05/19 11:03 BP 122/77 02/05/19 11:03 Pulse Ox 99 02/05/19 11:03 - Medical History PMH: Mitral Valve Prolapse (2007), Seizures (last 11/27 x5) Denies: HIV, Chronic Kidney Disease - Surgical History Surgical History: Hernia Repair - Family History Family History: States: Unknown Family Hx - Immunization History Hx Tetanus Toxoid Vaccination: No - Home Medications Home Medications: Ambulatory Orders Medication Instructions Recorded levETIRAcetam [Keppra] 500 mg PO Q12 tab 12/03/18 Naproxen [Naprosyn] 500 mg PO BID PRN #20 tablet 02/05/19 Sulfamethoxazole/Trimethoprim 1 tab PO BID 10 Days #20 tab 02/05/19 [Bactrim DS 800 mg-160 mg] - Allergies Allergies/Adverse Reactions: Allergies Allergy/AdvReac Type Severity Reaction Status Date / Time seafood Allergy SWELLING Uncoded 02/05/19 11:39 Review of Systems Constitutional: Negative for: Fever, Chills Eyes: Negative for: Pain ENT: Negative for: Ear Pain, Nose Pain Cardiovascular: Negative for: Chest Pain, Palpitations, Orthopnea Respiratory: Negative for: Cough, Shortness of Breath, Hemoptysis Gastrointestinal: Negative for: Nausea, Vomiting, Abdominal Pain, Diarrhea Genitourinary Male: Negative for: Dysuria, Frequency, Incontinence Musculoskeletal: Negative for: Neck Pain, Shoulder Pain, Arm Pain Skin: Negative for: Rash Neurological: Negative for: Weakness, Numbness, Incoordination Psych: Negative for: Anxiety Physical Exam - Physical Exam Appears: Positive for: No Acute Distress Head Exam: Positive for: NORMAL INSPECTION Skin: Positive for: Normal Color Eye Exam: Positive for: Normal appearance ENT: Positive for: Normal ENT Inspection Neck: Positive for: Normal Cardiovascular/Chest: Positive for: Regular Rate, Rhythm. Negative for: Murmur Respiratory: Positive for: Normal Breath Sounds. Negative for: Decreased Breath Sounds, Accessory Muscle Use Gastrointestinal/Abdominal: Positive for: Bowel Sounds, Soft. Negative for: Tenderness Back: Positive for: Normal Inspection. 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 Hernandez Patient understands and agrees with plan Disposition - Clinical Impression Clinical Impression: Boil, groin - Disposition Referrals: [facility] [Provider Group] Disposition: Routine/Home Disposition Time: 13:09 Condition: FAIR Additional Instructions: Warm compression, keep the area clean and dry F/u with PMD in 2-3 days return if symptoms get worse Prescriptions: Naproxen [Naprosyn] 500 mg PO BID PRN #20 tablet PRN Reason: Pain, Moderate (4-7) Sulfamethoxazole/Trimethoprim [Bactrim DS 800 mg-160 mg] 1 tab PO BID 10 Days #20 tab Instructions: Boil Forms: [employer] (Faroese) Print Language: NIGERIAN
[2019-02-05] MEDS ORDERED: Tmp-Smz 800 mg-160 mg DS Tab ONE (13:09)
[2019-02-05] MEDS ORDERED: Naproxen 500 MG TAB PO ONE (13:09)
[2019-02-05 13:52] VITALS: BP 118/78; PULSE 78; RESP 19; TEMP 97.6; O2SAT 98
== END 2019-02-05 13:36 | disposition home or self-care (01) ==
LOC: H.ER 11:00
DX: L02.224 Furuncle of groin (principal)